=== PATIENT | male | born 1945 | race Caucasian/White ===

== ENCOUNTER → 2016-07-02 | Outpatient (CLI) | payer MEDICARE, BC ==
[~2016-07-02] MED LIST: ACYC200C PO; AMLO1CAP2 PO; FENT1PAT19 TD; FLUO20CA16 PO; FLUT1DIS3 IH; FURO-68 PO; HYDR-2762 PO; IMMU10VI IV; IOHEXOL 180 MG/ML 10 ML VIAL. ONE; METF500T PO; POTA10TA31 PO; SITA100T PO; TAMS0.4C97 PO; VENTOLIN HFA18 GM IH; methylPREDNISolone ACETATE 40 MG/ML VIAL. ONE; methylPREDNISolone ACETATE 80 MG/ML VIAL. ONE
--- NOTE | 2016-07-02 17:15 | PAIN ---
DATE OF SERVICE: 07/02/2016 PROGRESS NOTE FOR PAIN CLINIC DIAGNOSES: Lumbar radiculopathy with lumbar spinal stenosis with neurogenic claudication. HISTORY OF PRESENT ILLNESS: The patient is a 71-year-old male, who returns for followup status post lumbar epidural steroid injections x 3, last seen 03/25/2016. The patient did very well with this injection at that time. Reports the pain has been returning now after about 75% improvement in the low back and bilateral lower extremities. The patient reports, it has been increasing the activity with bending, stooping and twisting motions has been more noticeable with sitting in the car as well, usually better with sitting down or lying down, did not awaking up from sleep at night, has having difficulty sleeping, because of CPAP machine as ____ by his report, but otherwise doing fairly well. The patient reports his pain as a 6 on a scale of 10, today it is aching, constant pain increase in the back, bilateral lower extremities, mostly in the posterior gluteus, posterior thighs with weightbearing and walking most notably. The patient reports no new motor or sensory deficits, no new bowel or bladder incontinence or other complaints. The patient is doing well with hydrocodone and Duragesic patches reports some itching with the Duragesic. He does not use it very often, but when he does have some itching on both of his arms and chest were discussed decreasing the dose ____ decrease this accordingly. PHYSICAL EXAMINATION: VITAL SIGNS: Today, the patient's blood pressure is 118/63, pulse 71, respirations 18, temperature 98.8 degrees Fahrenheit, height is 5 feet 11 inches, weight is 280 pounds. GENERAL: The patient is awake, alert, oriented, appropriate, very pleasant demeanor. HEENT: Head shows normocephalic, atraumatic. Extraocular movements intact, symmetrical. Oral cavity, mucous membranes moist and pink. Dentition is intact. NECK: Shows anterior throat supple without palpable lymphadenopathy noted. Swallow reflex is symmetrical. CHEST: Shows normal on inspection. Breath sounds are clear to auscultation bilaterally. HEART: Shows S1 and S2 clear. No murmurs auscultated. ABDOMEN: Obese, soft, nontender, nondistended. No palpable organomegaly. No new rebound or guarding demonstrated. BACK: Shows spine grossly midline. Mild flattening of lumbar lordotic curvature is noted. Lumbar paraspinous muscle shows some diffuse tenderness throughout the middle and lower distribution of paraspinous muscles bilaterally, but without significant radiation. The patient does show good rotational motion of lumbar spine, both laterally as well as extension and flexion without difficulty. No tenderness over the sacrum or sacroiliac regions. EXTREMITIES: Lower extremities showed deep tendon reflexes 1+/4 in the patellar and tendo calcaneus tendons are symmetrical. Motor exam is strong with dorsiflexion, extension, quadriceps and hamstring flexion and equal at 5/5. Options were discussed with the patient and the patient's old chart was reviewed and his current medication regimen updated. Current review of systems updated today as well. We will proceed with the first in the series of the lumbar epidural steroid injection with fluoroscopic guidance. Risks were again discussed including, but not limited to bleeding, infection, possibility of epidural hematoma, subsequent neurologic compromise, dural puncture, headaches, spinal cord and/or nerve damage, side effects of steroid medication and poor results regarding pain control. The patient understands and wishes to proceed. The patient will return to clinic in approximately 4 weeks for followup. He was counseled on his return appointment, activity level and side effects to be aware of. The patient was given refill prescription for hydrocodone and fentanyl 75 mcg dose, decreased from 100 mcg. This is may decrease some of the peripheral itching that he has been having. The patient was given instruction as well as side effects to be aware with the medications and will follow up as scheduled. DIAGNOSES: Lumbar radiculopathy with spinal stenosis with neurogenic claudication. PROCEDURES: Lumbar epidural steroid injection in translaminar approach to the L5-S1 level using C-arm fluoroscopic guidance under sterile prep and drape using local anesthetic. Medications injected 120 mg Depo-Medrol plus 10 mL of preservative-free normal saline and 2 mL of Isovue for contrast. CONDITION AT DISCHARGE: Stable. The patient tolerated procedure well, had no complications. ZENON ASENCIO MD DR: SHANIQUA/douglas JOB#: [id number] / [id number]
== END | disposition home or self-care (01) ==
LOC: PNCL 10:20
PROVIDERS: ATTEND Anesthesiology
DX: M48.06 Spinal stenosis, lumbar region (principal); M54.16 Radiculopathy, lumbar region
CPT/HCPCS: 62323; J1030; J1040

== ENCOUNTER → 2016-09-30 | Outpatient (CLI) | payer MEDICARE, BC | END | disposition home or self-care (01) | LOC: PNCL 13:48 | PROVIDERS: ATTEND Anesthesiology | DX: M48.06 Spinal stenosis, lumbar region (principal) | CPT/HCPCS: 62323; J1030; J1040 ==

== ENCOUNTER → 2016-12-24 | Outpatient (CLI) | payer MEDICARE, BC ==
--- NOTE | 2016-12-24 13:27 | PAIN ---
DATE OF SERVICE: 12/24/2016 PROGRESS NOTE FOR PAIN CLINIC DIAGNOSES: Lumbar radiculopathy with lumbar spinal stenosis and neurogenic claudication. HISTORY OF PRESENT ILLNESS: The patient is a 71-year-old male who returns for followup status post lumbar epidural steroid injection x 2, last seen 09/30/2016. The patient reports he did fairly well with this, about a 50%-60% improvement. The patient reports doing fairly well. The pain began to return now, however, in the low back itself, mostly in the low back, posterior gluteus, posterior thighs with some radiation into the lower extremities occasionally, but not every time that is present. The patient reports it is worse with standing, walking, changing positions, it wakes him from sleep occasionally, but he sleeps about 5 hours at a time, he can reposition and get back to sleep without too much difficulty. The patient reports the pain as aching and dull, radiating to posterior gluteus, posterior thighs. He has had increased activity lately as well, which has exacerbated the pain as he has been working on his farm, do his normal capacity, but the activity has been more recently over the past few weeks and has exacerbated the pain. The patient reports it is a 7 on a scale of 10 at its worse, a 4 on average and a 3 at its least . The patient reports no new motor or sensory deficits, no new bowel or bladder incontinence or other complaints. PHYSICAL EXAMINATION: VITAL SIGNS: Today, the patient's blood pressure 152/79, pulse 75, respirations are 18, temperature 97.8 degrees Fahrenheit, height is 5 feet 11 inches, weighs 265 pounds. GENERAL: The patient is awake, alert, oriented, appropriate, very pleasant demeanor. HEENT: Head shows normocephalic, atraumatic. Extraocular movements are intact and symmetrical. Oral cavity shows mucous membranes moist and pink. Dentition is intact. NECK: Shows anterior throat supple without palpable lymphadenopathy noted. Swallow reflex is symmetrical. CHEST: Shows normal on inspection. Breath sounds are clear to auscultation bilaterally. HEART: Shows S1 and S2 clear. ABDOMEN: Soft, nontender, nondistended. No palpable organomegaly noted. No rebound or guarding demonstrated. BACK: Shows grossly midline spine with some moderate tenderness with palpation in the lumbar paraspinous musculature on the lower lumbar distribution, but only diffusely without radiation. The patient has full rotational motion, both laterally as well as extension and flexion without difficulty. EXTREMITIES: Lower extremities showed deep tendon reflexes at 1+ in the patellar and 1+ tendo calcaneus tendons and equal. Motor exam is strong with 5/5 dorsiflexion, extension and equal bilaterally. PLAN: Options were discussed with the patient and the patient's old chart was reviewed as is his current medication regimen and review of systems updated as well. We will proceed with a lumbar epidural steroid injection, a third in the series with fluoroscopic guidance. Risks were again discussed including, but not limited to bleeding, infection, possibility of epidural hematoma, subsequent neurologic compromise, dural puncture, headaches, spinal cord and/or nerve damage, side effects of steroid medication and poor results regarding pain control. The patient understands and wishes to proceed. The patient will return to clinic in approximately 2 weeks for followup. He was counseled as to return appointment, activity level and side effects to be aware of. DIAGNOSES: Lumbar radiculopathy with lumbar spinal stenosis and neurogenic claudication. PROCEDURE: Lumbar epidural steroid injection in translaminar approach at L5-S1 levels using C-arm fluoroscopic guidance under sterile prep and drape using local anesthetic. MEDICATIONS INJECTED: A 120 mg of Depo-Medrol plus 10 mL of preservative-free normal saline and 2 mL of Isovue for contrast. CONDITION AT DISCHARGE: Stable. The patient tolerated the procedure well and no complications. ZENON ASENCIO MD DR: SHANIQUA/douglas JOB#: [id number] / [id number]
== END | disposition home or self-care (01) ==
LOC: PNCL 10:22
PROVIDERS: ATTEND Anesthesiology
DX: M48.06 Spinal stenosis, lumbar region (principal); M54.16 Radiculopathy, lumbar region; Z88.6 Allergy status to analgesic agent
CPT/HCPCS: 62323; J1030; J1040

== ENCOUNTER → 2017-03-03 | Outpatient (CLI) | payer MEDICARE, BC ==
--- NOTE | 2017-03-04 00:59 | PAIN ---
DATE OF SERVICE: 03/03/2017 DIAGNOSES: Lumbar radiculopathy with lumbar spinal stenosis and neurogenic claudication. HISTORY OF PRESENT ILLNESS: The patient is a 71-year-old male who returns for a followup status post lumbar epidural steroid injection x 1 on 02/04. The patient reports he did very well with about 80% improvement in the low back, bilateral lower extremity. Now pain is returning in the low back region, in the right posterior gluteus, posterior thigh, posterior calf on the right side more than the left; is aching, radiating, dull, stabbing at times and can be tight as well. The patient reports it is intermittent; however, is not as bad as it was prior to injection, but is beginning to return over the past week or so and becoming more noticeable. The patient reports it is beginning to awaken him from sleep as it did not do this right after the injection but now over the past week or so, it is beginning to do this as well. He can usually reposition, take pain medication and get out of bed, change positions about every 3-4 hours, especially when he laid on his right side. The patient reports his pain is a 9 on a scale of 10 at its worst, 8 on average, a 4 at its least and is a 4 today. The patient reports no new motor or sensory deficits, no new bowel or bladder incontinence or other complaints. PHYSICAL EXAMINATION: VITAL SIGNS: Today, the patient's blood pressure is 144/77, pulse 65, respirations 18, temperature is 97.8 degrees Fahrenheit, height is 5 feet 11 inches, weight is 264 pounds. GENERAL: The patient is awake, alert, oriented, appropriate, has a very pleasant demeanor. HEENT: Shows normocephalic, atraumatic. Extraocular movements are intact, symmetrical. Oral cavity shows mucous membranes are moist and pink. Dentition is intact. NECK: Shows anterior throat supple without palpable lymphadenopathy noted. Swallow reflex is symmetrical. Neck shows full rotational motion of cervical spine both laterally as well as extension and flexion without difficulty or pain reported. CHEST: Shows normal with inspection. Breath sounds are clear to auscultation bilaterally. HEART: Shows S1, S2 clear. No murmurs auscultated. ABDOMEN: Obese, but is soft, nontender, nondistended. No palpable organomegaly is noted. MUSCULOSKELETAL: Back shows spine grossly in the midline. Lumbar paraspinous musculature shows symmetrical with inspection, on palpation shows some mild tenderness with palpation in the low lumbar distribution only, but without radiation. No trigger points or asymmetry. The patient has full rotational motion of the lumbar spine both laterally as well as extension and flexion without significant difficulty. Lower extremities show deep tendon reflexes at 1+/4 in the patellar and tendo-calcaneus tendons and are equal. Motor exam is strong with 5/5 dorsiflexion, extension, quadriceps and hamstring flexion and symmetrical as well. Peripheral pulses are 1+ posterior tibia. No peripheral edema is noted bilaterally. PLAN: Options were discussed with the patient. The patient's old chart was reviewed as his current medication regimen and his current review of systems updated as well as medication list updated. The patient would like to proceed with a lumbar epidural steroid injection today. It is the second in serious. We discussed the procedure as well as risks including but not limited to bleeding, infection, possibility of epidural hematoma and subsequent neurological compromise, dural puncture headaches, spinal cord and/or nerve damage, side effects of steroid medication and poor results regarding pain control. The patient understands and wished to proceed. The patient will return to the clinic in approximately 2 weeks for a followup, was counseled on return appointment, activity level and side effects to be aware of. DIAGNOSES: Lumbar radiculopathy with lumbar spinal stenosis and neurogenic claudication. PROCEDURE: Lumbar epidural steroid injection, translaminar approach, at the L5-S1 level using C-arm fluoroscopic guidance under sterile prep and drape using local anesthetic. MEDICATIONS INJECTED: A total of 120 mg of Depo-Medrol plus 10 mL of preservative-free normal saline and 2 mL of Isovue for contrast. CONDITION AT DISCHARGE: Stable. The patient tolerated procedure well, had no complications. ZENON ASENCIO MD DR: SHANIQUA/douglas JOB#: [id number] / [id number]
== END | disposition home or self-care (01) ==
LOC: PNCL 10:35
PROVIDERS: ATTEND Anesthesiology
DX: M48.062 Spinal stenosis, lumbar region with neurogenic claudication (principal); M54.16 Radiculopathy, lumbar region; Z88.5 Allergy status to narcotic agent
CPT/HCPCS: 62323; J1030; J1040

== ENCOUNTER → 2017-03-25 | Outpatient (CLI) | payer MEDICARE, BC ==
--- NOTE | 2017-03-25 19:44 | PAIN ---
DATE OF SERVICE: 03/25/2017 DIAGNOSES: Lumbar radiculopathy with lumbar spinal stenosis and neurogenic claudication. HISTORY OF PRESENT ILLNESS: The patient is a 72-year-old male who returns for followup status post lumbar epidural steroid injections x 2, last seen 03/03/2017. The patient did very well, about 80% improvement. 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 It is now becoming more constant, is radiating pain, is aching, alternating with dull and sharp pains occasionally, worse with walking, standing, change in positions, but better with sitting or lying down. The patient reports it awakens him occasionally from sleep, but not every night, usually when he lays on his right side. The patient reports pain is 7 on a scale of 10 at its worse, 5 on average, and a 3 at its least, is a 3 today. The patient reports no new motor or sensory deficits, no new bowel or bladder incontinence or other complaints. PHYSICAL EXAMINATION: VITAL SIGNS: Today, the patient's blood pressure 148/72, pulse 70, respirations are 20, temperature is 97.5 degrees Fahrenheit, height 5 feet 11 inches, weight is 260 pounds. GENERAL: The patient is awake, alert, oriented, appropriate, very pleasant demeanor. HEENT: Head shows normocephalic, atraumatic. Extraocular muscles are intact and symmetrical. Oral cavity: Mucous membranes moist and pink. Dentition is intact. NECK: Shows anterior throat supple without palpable lymphadenopathy noted. Swallow reflex is symmetrical. CHEST: Shows normal with inspection. Breath sounds clear to auscultation bilaterally. HEART: Shows S1, S2 clear. No murmurs auscultated. ABDOMEN: Obese, soft, nontender, nondistended. No palpable organomegaly is noted. No rebound or guarding demonstrated. BACK: Shows spine grossly in midline. Well-healed surgical scarring is noted in the lumbar distribution from superficial surgeries. Lumbar paraspinous muscle shows symmetrical on inspection. The patient shows no tenderness on the sacrum or sacroiliac regions with palpation. Good rotational motion both laterally greater than 10 degrees right and left as well as extension greater than 10 degrees without pain reported, also forward flexion at 45 degrees without pain. EXTREMITIES: Lower extremities show deep tendon reflexes 1+ in the patellar and tendo calcaneus tendons. Motor exam is strong with 5/5 dorsiflexion, extension, quads and hamstring flexion and equal. Peripheral pulses are 1+ posterior tibial. No peripheral edema is noted bilaterally. Options were discussed with the patient. The patient's old chart was reviewed as his current medication regimen and updated. Current review of systems is updated today as well. We will proceed with a third in the series of lumbar epidural steroid injection with fluoroscopic guidance. Risks were again discussed including, but not limited to bleeding, infection, possibility of epidural hematoma, subsequent neurologic compromise, dural puncture, headaches, spinal cord and/or nerve damage, side effects of steroid medication and poor results regarding pain control. The patient understands and wished to proceed. The patient will return to clinic in approximately 2 weeks for followup. He was counseled to return appointment, activity level and side effects to be aware of. DIAGNOSIS: Lumbar radiculopathy with lumbar spinal stenosis and neurogenic claudication. PROCEDURE: Lumbar epidural steroid injection, translaminar approach L5-S1 level using C-arm fluoroscopic guidance under sterile prep and drape using local anesthetic. MEDICATION INJECTED: A total of 120 mg Depo-Medrol plus 10 mL preservative-free normal saline and 2 mL of Isovue for contrast. CONDITION AT DISCHARGE: Stable. The patient tolerated procedure well, had no complications. ZENON ASENCIO MD DR: SHANIQUA/douglas JOB#: [id number] / [id number]
== END | disposition home or self-care (01) ==
LOC: PNCL 10:32
PROVIDERS: ATTEND Anesthesiology
DX: M48.062 Spinal stenosis, lumbar region with neurogenic claudication (principal); M54.16 Radiculopathy, lumbar region; Z88.6 Allergy status to analgesic agent
CPT/HCPCS: 62323; J1030; J1040

== ENCOUNTER → 2017-08-23 | Outpatient (CLI) | payer MEDICARE, BC ==
[~2017-08-23] MED LIST changes: -ACYC200C PO; -AMLO1CAP2 PO; -FENT1PAT19 TD; -FLUO20CA16 PO; -FLUT1DIS3 IH; -FURO-68 PO; -HYDR-2762 PO; -IMMU10VI IV; +IOHEXOL 180 MG/ML 10 ML VIAL.; -IOHEXOL 180 MG/ML 10 ML VIAL. ONE; +LIDOCAINE 1% PF 2 ML VIAL.; -METF500T PO; -POTA10TA31 PO; -SITA100T PO; -TAMS0.4C97 PO; -VENTOLIN HFA18 GM IH; +methylPREDNISolone ACETATE 40 MG/ML VIAL.; -methylPREDNISolone ACETATE 40 MG/ML VIAL. ONE; +methylPREDNISolone ACETATE 80 MG/ML VIAL.; -methylPREDNISolone ACETATE 80 MG/ML VIAL. ONE
== END | disposition home or self-care (01) ==
LOC: PNCL 10:17
DX: M48.062 Spinal stenosis, lumbar region with neurogenic claudication (principal); M54.16 Radiculopathy, lumbar region; Z88.5 Allergy status to narcotic agent
CPT/HCPCS: 62323; J1030; J1040; Q9965

== ENCOUNTER → 2018-01-21 | Outpatient (CLI) | payer MEDICARE, BC ==
[~2018-01-21] MED LIST changes: +ACYC200C PO; +AMLO1CAP2 PO; +FENT1PAT19 TD; +FLUO20CA16 PO; +FLUT1DIS3 IH; +FURO-68 PO; +HYDR-2762 PO; +IMMU10VI IV; -IOHEXOL 180 MG/ML 10 ML VIAL.; +IOHEXOL 180 MG/ML 10 ML VIAL. ONE; -LIDOCAINE 1% PF 2 ML VIAL.; +LIDOCAINE 1% PF 2 ML VIAL. ONE; +METF500T PO; +POTA10TA31 PO; +SITA100T PO; +TAMS0.4C97 PO; +VENTOLIN HFA18 GM IH; -methylPREDNISolone ACETATE 40 MG/ML VIAL.; +methylPREDNISolone ACETATE 40 MG/ML VIAL. ONE; -methylPREDNISolone ACETATE 80 MG/ML VIAL.; +methylPREDNISolone ACETATE 80 MG/ML VIAL. ONE
--- NOTE | 2018-01-22 01:15 | PAIN ---
DATE OF SERVICE: 01/21/2018 PROGRESS NOTE FOR PAIN CLINIC DIAGNOSIS: Lumbar radiculopathy with lumbar spinal stenosis with neurogenic claudication. HISTORY OF PRESENT ILLNESS: The patient is a 72-year-old male who returns for followup status post lumbar epidural steroid injection x 2, last seen on 12/14/2017. The patient did very well with this with about 50% improvement overall, initially with about 70%-80% improvement, but the pain is returning now in the low back and in the right greater than left lower extremity. 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 The patient reports the pain is 8 on a scale of 10 at its worst, 6 on average, 4 at its least and is a 6 today. The patient reports it is an aching, dull, radiating to the right leg, posterior gluteus and posterior thighs noted. The patient reports no new motor or sensory deficits and no new bowel or bladder incontinence but it does awaken him from sleep occasionally over the last week or so, which usually does not. PHYSICAL EXAMINATION: VITAL SIGNS: The patient's blood pressure 134/79, pulse 70, respirations 18 and temperature 97.5 degrees Fahrenheit. Weight is 267 pounds. GENERAL: The patient is awake, alert, oriented, appropriate and very pleasant demeanor. HEENT: Head shows normocephalic and atraumatic. Extraocular movements are intact and symmetrical. Oral cavity: Mucous membranes are moist and pink. Dentition is intact. NECK: Shows anterior throat supple without palpable lymphadenopathy noted. Swallow reflex symmetrical. CHEST: Shows normal on inspection. Breath sounds clear to auscultation bilaterally. HEART: Shows S1 and S2 clear. No murmurs auscultated. ABDOMEN: Obese, soft, nontender and nondistended. No palpable organomegaly is noted. No rebound or guarding demonstrated. BACK: Shows spine grossly in the midline. Normal appearing thoracic kyphosis and lumbar lordotic curvature. Lumbar paraspinous muscle shows symmetrical on inspection, on palpation shows some mild tenderness but only diffusely in the low lumbar distribution bilaterally without radiation. Good rotational motion of the lumbar spine, both laterally as well as extension and flexion is maintained without difficulty or pain reported. No tenderness over the sacrum or sacroiliac regions. EXTREMITIES: Lower extremities show deep tendon reflexes 1+ in the patellar and tendo-calcaneus tendons. Motor exam is strong with 5/5 dorsiflexion, extension, quadriceps and hamstring flexion. Peripheral pulses are 1+ posterior tibial. No peripheral edema is noted. Options were discussed with the patient. The patient's old chart was reviewed as well as his current medication regimen updated. Current review of systems updated today as well and we will proceed with a third in the series of lumbar epidural steroid injection today with fluoroscopic guidance. Risks were again discussed including, but not limited to bleeding, infection, possibility of epidural hematoma, subsequent neurological compromise, dural puncture, headaches, spinal cord and/or nerve damage, side effects of steroid medication and poor results regarding pain control. The patient understands and wished to proceed. The patient will return to the clinic in approximately 2 weeks for followup, was counseled as to return appointment, activity level and side effects to be aware of. DIAGNOSES: Lumbar radiculopathy with lumbar spinal stenosis with neurogenic claudication. PROCEDURE: Lumbar epidural steroid injection, translaminar approach at L5-S1 level using C-arm fluoroscopic guidance under sterile prep and drape using local anesthetic. MEDICATION INJECTED: A total of 120 mg Depo-Medrol plus 10 mL of preservative-free normal saline and 2 mL of Isovue for contrast. CONDITION AT DISCHARGE: Stable. The patient tolerated the procedure well and had no complications. ZENON ASENCIO MD DR: SHANIQUA/douglas JOB#: [id number] / [id number]
== END | disposition home or self-care (01) ==
LOC: PNCL 11:08
PROVIDERS: ATTEND Anesthesiology
DX: M54.16 Radiculopathy, lumbar region (principal); M48.062 Spinal stenosis, lumbar region with neurogenic claudication; Z98.890 Other specified postprocedural states
CPT/HCPCS: 62323; J1030; J1040; Q9965

== ENCOUNTER → 2018-08-02 | Outpatient (CLI) | payer MEDICARE, BC ==
[~2018-08-02] MED LIST changes: -HYDR-2762 PO; +HYDR-2765 PO; -LIDOCAINE 1% PF 2 ML VIAL. ONE
--- NOTE | 2018-08-03 01:35 | PAIN ---
DATE OF SERVICE: 08/02/2018 DIAGNOSES: Lumbar radiculopathy with lumbar spinal stenosis with neurogenic claudication. HISTORY OF PRESENT ILLNESS: The patient is a 73-year-old male who returns for followup status post lumbar epidural steroid injection x 1 on 03/14/2018. The patient did very well with about 70% improvement for about 2 months following the injection. The patient reports the pain is returning now. He has been distracted though he had some skin cancer taken of the right side of his nondenominational and has been dealing with that over the past few months and returns today with significant pain in the low back, bilateral lower extremities, right equal to left, essentially into the posterior gluteus, posterior thighs, posterior calves and across the low back primarily. The patient reports it is a 6 on a scale of 10 at its worst, 4 on average, 2 at its least and is a 4 today. The patient reports it is aching and dull, shooting, stinging, sometimes burning and becoming constant with spending time on his feet, bending or flexing at the waist repetitively and standing for long periods of greater than 40-50 minutes. The patient reports it is awakening him from sleep occasionally, but only about once or twice at night if at all. The patient reports no new motor or sensory deficits, no new bowel or bladder incontinence or other complaints. PHYSICAL EXAMINATION: VITAL SIGNS: The patient's blood pressure 109/68, pulse 75, respirations 18, temperature is 98.5 degrees Fahrenheit, and weight is 265 pounds. GENERAL: The patient is awake, alert, oriented, appropriate, very pleasant demeanor. HEENT: Shows normocephalic, atraumatic. Extraocular movements are intact and symmetrical. Oral cavity: Mucous membranes moist and pink. Dentition is intact. NECK: Shows anterior throat supple without palpable lymphadenopathy noted. Swallow reflex is symmetrical. CHEST: Shows normal on inspection. Breath sounds are clear to auscultation bilaterally. HEART: Shows S1, S2 clear. No murmurs auscultated. ABDOMEN: Soft, nontender, nondistended. No palpable organomegaly is noted. No rebound or guarding demonstrated. BACK: Shows spine grossly in the midline. Slight exaggeration of thoracic kyphosis, some minor flattening of lumbar lordotic curvature. Lumbar paraspinous muscle shows symmetrical on inspection. On palpation shows some moderate tenderness diffusely bilaterally, but only diffusely without radiation. The patient has good rotational motion of lumbar spine, both laterally greater than 10 degrees right and left as well as extension greater than 10 degrees, forward flexion 45 degrees without pain reported. EXTREMITIES: The patient's lower extremities show deep tendon reflexes 1+ in the patellar and tendo calcaneus tendons are equal. Motor exam is strong with 5/5 dorsiflexion, extension and equal. Peripheral pulses are 1+ posterior tibia. No peripheral edema is noted bilaterally. Options were discussed with the patient. The patient's old chart was reviewed as his current medication regimen updated. Current review of systems is updated today as well. We will proceed with a second in the series of lumbar epidural steroid injection today with fluoroscopic guidance. Risks were again discussed including, but not limited to bleeding, infection, possibility of epidural hematoma, subsequent neurologic compromise, dural puncture, headaches, spinal cord and/or nerve damage, side effects of steroid medication and poor results regarding pain control. The patient understands and wished to proceed. The patient will return to the clinic in approximately 2 weeks for followup, was counseled on return appointment, activity level and side effects to be aware of. The patient also given refill prescription for hydrocodone with instructions and side effects to be aware of with a 90-day supply. He has had appropriate [facility] reporting as well as appropriate urinalysis to date. DIAGNOSES: Lumbar radiculopathy with lumbar spinal stenosis with neurogenic claudication. PROCEDURE: Lumbar epidural steroid injection, translaminar approach at L5-S1 level using C-arm fluoroscopic guidance under sterile prep and drape using local anesthetic. MEDICATION INJECTED: A total of 120 mg Depo-Medrol plus 10 mL of preservative-free normal saline and 2 mL of Isovue for contrast. CONDITION AT DISCHARGE: Stable. The patient tolerated the procedure well, had no complications. ZENON ASENCIO MD DR: SHANIQUA/douglas JOB#: [id number] / [id number]
== END | disposition home or self-care (01) ==
LOC: PNCL 10:00
PROVIDERS: ATTEND Anesthesiology
DX: M48.062 Spinal stenosis, lumbar region with neurogenic claudication (principal); M54.16 Radiculopathy, lumbar region; Z88.5 Allergy status to narcotic agent; Z91.040 Latex allergy status
CPT/HCPCS: 62323; J1030; J1040; Q9965

== ENCOUNTER → 2018-09-22 | Outpatient (CLI) | payer MEDICARE, BC ==
--- NOTE | 2018-09-22 12:20 | PAIN ---
DATE OF SERVICE: 09/22/2018 PROGRESS NOTE FOR PAIN CLINIC DIAGNOSIS: Lumbar radiculopathy with lumbar spinal stenosis with neurogenic claudication. HISTORY OF PRESENT ILLNESS: The patient is a 73-year-old male who returns for followup status post lumbar epidural steroid injection x 2, most recently seen on 08/02/2018. The patient did very well, about 70% improvement for the first 2 months after the injection. 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 He has increasing pain in his low back and bilateral lower extremities. The patient reports pain is radiating into the posterior gluteus, posterior thighs and calves, mostly in the low back is his main complaint. The patient reports it is burning and aching, sharp and dull, alternating and stabbing at times; worse with walking, standing, changing in positions. He reports the pain is 6 on a scale 10 at its worst over the past week, 4 on average, 3 at its least and is 3 today. The patient reports otherwise he was doing well before that with distance walking, doing activities at work and at home, travelling with greater ease and comfort. Now the pain is returning, it is waking him from sleep about once or twice a night, but not every night. The patient reports no new motor or sensory deficits, no new bowel or bladder incontinence or other complaints. PHYSICAL EXAMINATION: VITAL SIGNS: The patient's blood pressure is 143/84, pulse 67, respirations are 16, temperature 97.7 degrees Fahrenheit. Height is 5 feet 11 inches, weight 274 pounds. GENERAL: The patient is awake, alert, oriented, appropriate, very pleasant demeanor. HEENT: Shows normocephalic, atraumatic. Extraocular movements are intact and symmetrical. Oral cavity: Mucous membranes moist and pink. Dentition is intact. NECK: Shows anterior throat supple without palpable lymphadenopathy noted. Swallow reflex is symmetrical. CHEST: Shows normal on inspection. Breath sounds are clear to auscultation bilaterally. HEART: Shows S1, S2 clear. No murmurs auscultated. ABDOMEN: Soft, nontender, nondistended. No palpable organomegaly is noted. No rebound or guarding demonstrated. BACK: Shows spine grossly in the midline. Normal-appearing thoracic kyphosis and mild flattening of lumbar lordotic curvature. Lumbar paraspinous muscle shows symmetrical on inspection; with palpation shows some moderate tenderness diffusely, only in the low lumbar distribution bilaterally without radiation. The patient has good rotational motion of lumbar spine, both laterally as well as extension and flexion without significant pain. EXTREMITIES: The patient's lower extremities show deep tendon reflexes 1+ and the patellar and tendo calcaneus tendons are equal. Motor exam is approximately 5 on a scale of 5 with dorsiflexion, extension, quadriceps and hamstring; flexion symmetrical. Peripheral pulses are 1+ posterior tibia. No peripheral edema is noted bilaterally. Options were discussed with the patient. The patient's old chart was reviewed as was his current medication regimen updated. Current review of systems updated today as well. We will proceed with a third in the series of lumbar epidural steroid injection today with fluoroscopic guidance. Risks were again discussed including, but not limited to bleeding, infection, possibility of epidural hematoma and subsequent neurological compromise, dural puncture, headaches, spinal cord and/or nerve damage, side effects of steroid medication and poor results regarding pain control. The patient understands and wished to proceed. The patient will return to clinic in approximately 2 weeks for followup. He was counseled as to return appointment, activity level and side effects to be aware of. DIAGNOSIS: Lumbar radiculopathy with lumbar spinal stenosis with neurogenic claudication. PROCEDURES: Lumbar epidural steroid injection, translaminar approach at L5-S1 level using C-arm fluoroscopic guidance under sterile prep and drape using local anesthetic. MEDICATION INJECTED: A total of 120 mg Depo-Medrol plus 10 mL of preservative-free normal saline and 2 mL of contrast. CONDITION AT DISCHARGE: Stable. The patient tolerated the procedure well, had no complications. ZENON ASENCIO MD DR: SHANIQUA/douglas JOB#: [id number] / [id number]
== END ==
LOC: PNCL 10:32
PROVIDERS: ATTEND Anesthesiology
DX: M54.16 Radiculopathy, lumbar region (principal); M48.062 Spinal stenosis, lumbar region with neurogenic claudication
CPT/HCPCS: 62323; J1030; J1040; Q9965

== ENCOUNTER → 2018-10-11 | Outpatient (CLI) | payer MEDICARE, BC ==
--- NOTE | 2018-10-11 10:43 | PAIN ---
DATE OF SERVICE: 10/11/2018 DIAGNOSIS: Lumbar radiculopathy with lumbar spinal stenosis with neurogenic claudication. HISTORY OF PRESENT ILLNESS: The patient is a 73-year-old male who returns for followup status post lumbar epidural steroid injections, most recently on 09/22/2018. The patient did very well with about 70% improvement overall. The patient reports that the pain is returning now in the low back and into the bilateral lower extremity, slightly more on the right than the left, but present bilaterally, the patient reports increased with activity. Initially, he was doing much better with decreased daily activities, working activities, traveling. The pain is returning fairly quickly. The patient reports it is aching and dull, can be severe at times, radiating into the posterior gluteus, posterior thighs bilaterally, again worse on the right side. The patient reports it is 7 on a scale of 10 at its worst in the past week, 6 on average, 4 at its least and is a 5 today. The patient reports no new motor or sensory deficits, no new bowel or bladder incontinence or other complaints. PHYSICAL EXAMINATION: VITAL SIGNS: The patient's blood pressure 142/82, pulse 69, respirations 18, temperature 97.8 degrees Fahrenheit, height is 5 feet 11 inches, weight is 271 pounds. GENERAL: The patient is awake, alert, oriented, appropriate, very pleasant in demeanor. HEENT: Head shows normocephalic, atraumatic. Extraocular muscles are intact and symmetrical. Oral cavity, mucous membranes are moist and pink. Dentition is intact. NECK: Shows anterior throat supple without palpable lymphadenopathy noted. Swallow reflex is symmetrical. CHEST: Shows normal on inspection. Breath sounds clear to auscultation bilaterally. HEART: Shows S1, S2 clear. No murmurs auscultated. ABDOMEN: Soft, nontender, nondistended. No palpable organomegaly is noted. No rebound or guarding demonstrated. BACK: Shows spine grossly in the midline. Normal-appearing thoracic kyphosis and minor flattening of lumbar lordotic curvature. Lumbar paraspinous muscle shows symmetrical on inspection and palpation shows some moderate tenderness diffusely bilaterally, but only diffusely without significant radiation. EXTREMITIES: The patient's lower extremities show deep tendon reflexes at 1+in the patellar and tendo-calcaneus tendons and equal. Motor exam is 5/5 with dorsiflexion, extension, quadriceps and hamstring flexion symmetrical. Peripheral pulses are 1+. No peripheral edema is noted bilaterally. Options were discussed with the patient. The patient's old chart was reviewed as his current medication regimen updated. Current review of systems updated today as well. We will proceed with a lumbar epidural steroid injection today to effect as the first in this series with fluoroscopic guidance. Risks were again discussed including, but not limited to bleeding, infection, possibility of epidural hematoma, subsequent neurological compromise, dural puncture, headaches, spinal cord and/or nerve damage, side effects of steroid medication and poor results regarding pain control. The patient understands and wished to proceed. The patient will return to the clinic in approximately 2 weeks for followup, was counseled on return appointment, activity level and side effects to be aware of. DIAGNOSIS: Lumbar radiculopathy with lumbar spinal stenosis with neurogenic claudication. PROCEDURE: Lumbar epidural steroid injection, translaminar approach L5-S1 level using C-arm fluoroscopic guidance under sterile prep and drape using local anesthetic. MEDICATION INJECTED: A total of 120 mg Depo-Medrol plus 10 mL of preservative-free normal saline, 2 mL for contrast. CONDITION AT DISCHARGE: Stable. The patient tolerated procedure well, had no complications. ZENON ASENCIO MD DR: SHANIQUA/douglas JOB#: [id number] / [id number]
== END ==
LOC: PNCL 08:56
PROVIDERS: ATTEND Anesthesiology
DX: M48.062 Spinal stenosis, lumbar region with neurogenic claudication (principal); M54.16 Radiculopathy, lumbar region
CPT/HCPCS: 62323; J1030; J1040; Q9965

== ENCOUNTER → 2019-01-06 | Outpatient (CLI) | payer MEDICARE, BC ==
--- NOTE | 2019-01-06 13:12 | PAIN ---
DATE OF SERVICE: 01/06/2019 PROGRESS NOTE FOR PAIN CLINIC DIAGNOSES: Lumbar radiculopathy with lumbar spinal stenosis with neurogenic claudication. HISTORY OF PRESENT ILLNESS: The patient is a 73-year-old male who returns for followup status post lumbar epidural steroid injection x 1, this series that was in 10/11/2018. The patient reports he did quite well with that with approximately 75% improvement initially and about 50% improvement after about a month. The patient reports the pain is returning now for about 4-5 weeks in the low back and into the bilateral lower extremities, mostly in the posterior gluteus, posterior thigh, posterior calf on the right side, but mostly across the low back. The patient reports it is 7 on a scale of 10 at its worst over the past week, 6 on average, 4 at its least and is at 4 today. The patient reports no new motor or sensory deficits, no new bowel or bladder incontinence or other complaints. The patient reports it awakens him from sleep about every 4-5 hours and has for the past few weeks. Before that, he was doing much better with increase in distance walking, doing work activities, household activities, traveling with greater ease and comfort. The patient reports no new motor or sensory deficits. Describes the pain as aching and dull, sharp at sometimes, and shooting in the right leg greater than the left. PHYSICAL EXAMINATION: VITAL SIGNS: The patient's blood pressure 138/78, pulse 69, respirations are 16, temperature 97.9 degrees Fahrenheit, height is 5 feet 11 inches, weight is 274 pounds. GENERAL: The patient is awake, alert, oriented, appropriate, very pleasant demeanor. HEENT: Shows normocephalic, atraumatic. Extraocular movements are intact and symmetrical. Oral cavity, mucous membranes are moist and pink. Dentition is intact. NECK: Shows anterior throat supple without palpable lymphadenopathy noted. Swallow reflex is symmetrical. CHEST: Shows normal on inspection. Breath sounds are clear to auscultation bilaterally. HEART: Shows S1, S2 clear. No murmurs auscultated. ABDOMEN: Soft, nontender, nondistended. BACK: Shows spine grossly in the midline. Slight exaggeration of thoracic kyphosis and minor flattening of lumbar lordotic curvature. Lumbar paraspinous muscle shows symmetrical on inspection, with palpation shows some moderate tenderness bilaterally. The patient has well-healed surgical scars noted from skin lesions in the past as well. With palpation shows some moderate tenderness diffusely bilaterally in the low lumbar distribution, but only diffusely. The patient has full rotational motion of the lumbar spine both laterally as well as extension and flexion without difficulty. EXTREMITIES: Lower extremities show deep tendon reflexes at 1+ in the patellar and tendo calcaneus tendons. Motor exam is strong with 5/5 dorsiflexion, extension, quadriceps and hamstring flexion symmetrical. Peripheral pulses are 1+ posterior tibia. No peripheral edema is noted. Options were discussed with the patient. The patient's old chart was reviewed as his current medication regimen updated. Current review of systems updated today as well. We will proceed with a lumbar epidural steroid injection, second in a series today with fluoroscopic guidance. Risks were again discussed including, but not limited to bleeding, infection, possibility of epidural hematoma, subsequent neurological compromise, dural puncture, headaches, spinal cord and/or nerve damage, side effects of steroid medication and poor results regarding pain control. The patient understands and wished to proceed. The patient will return to clinic in approximately 2 weeks for followup. He was counseled on return appointment, activity level and side effects to be aware of. DIAGNOSIS: Lumbar radiculopathy with lumbar spinal stenosis with neurogenic claudication. PROCEDURE: Lumbar epidural steroid injection, translaminar approach L5-S1 level using C-arm fluoroscopic guidance under sterile prep and drape using local anesthetic. MEDICATION INJECTED: Total of 120 mg Depo-Medrol plus 10 mL of preservative-free normal saline and 2 mL of contrast. CONDITION AT DISCHARGE: Stable. The patient tolerated the procedure well, had no complications. ZENON ASENCIO MD DR: SHANIQUA/douglas JOB#: [id number] / [id number]
== END | disposition home or self-care (01) ==
LOC: PNCL 10:57
PROVIDERS: ATTEND Anesthesiology
DX: M54.16 Radiculopathy, lumbar region (principal); M48.062 Spinal stenosis, lumbar region with neurogenic claudication; Z98.890 Other specified postprocedural states; Z91.040 Latex allergy status; Z88.8 Allergy status to other drugs, medicaments and biological substances
CPT/HCPCS: 62323; J1030; J1040; Q9965

== ENCOUNTER → 2019-02-15 | Outpatient (CLI) | payer MEDICARE, BC ==
--- NOTE | 2019-02-15 23:03 | PAIN ---
DATE OF SERVICE: 02/15/2019 PROGRESS NOTE FOR PAIN CLINIC DIAGNOSES: Lumbar radiculopathy with lumbar spinal stenosis with neurogenic claudication. HISTORY OF PRESENT ILLNESS: The patient is a 73-year-old male who returns for followup status post lumbar epidural steroid injection x 2, most recently seen on 01/06/2019. The patient did very well with the injection, about 50% improvement overall. The patient reports recent colder weather. 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 He has had increased pain in the low back, bilateral lower extremities, radiating in the posterior gluteus, posterior thighs bilaterally, essentially right equal to left. The patient reports initially he was doing work activities with greater ease and comfort, doing household activities as well as traveling with greater ease. Now, the pain is beginning to increase. The patient reports it is aching and dull in the back, radiating to the lower extremities. He rates as an 8 on a scale of 10, it was worst over the past week, 7 on average, 5 at its least and is a 7 today. The patient reports no new motor or sensory deficits, no new bowel or bladder incontinence. PHYSICAL EXAMINATION: VITAL SIGNS: The patient's blood pressure 143/87, pulse 72, respirations 16, temperature is 98.0 degrees Fahrenheit, weight is 278 pounds. GENERAL: The patient is awake, alert, oriented, appropriate, very pleasant demeanor. HEENT: Shows normocephalic, atraumatic. Extraocular movements are intact and symmetrical. Oral cavity shows mucous membranes moist and pink. Dentition is intact. NECK: Shows anterior throat supple without palpable lymphadenopathy noted. Swallow reflex symmetrical. CHEST: Shows normal on inspection. Breath sounds are clear bilaterally. HEART: Shows S1, S2 clear. No murmurs auscultated. ABDOMEN: Soft, nontender, nondistended. No palpable organomegaly is noted. No rebound or guarding demonstrated. BACK: Shows spine grossly in the midline. Normal-appearing thoracic kyphosis and some minor flattening of lumbar lordotic curvature. Lumbar paraspinous muscle shows symmetrical on inspection, on palpation shows some moderate tenderness diffusely bilaterally going diffusely without radiation. EXTREMITIES: The patient's lower extremities show deep tendon reflexes at 1+ in the patellar and tendo-calcaneus tendons are equal. Motor exam is strong with 5/5 dorsiflexion, extension, quadriceps and hamstring flexion symmetrical. Peripheral pulses are 1+ posterior tibia. No peripheral edema is noted in the bilateral lower extremities. Options were discussed with the patient. The patient's old chart was reviewed as his current medication regimen updated. Current review of systems updated today as well and we will proceed with a lumbar epidural steroid injection today with fluoroscopic guidance. Risks were again discussed including, but not limited to bleeding, infection, possibility of epidural hematoma, subsequent neurological compromise, dural puncture, headaches, spinal cord and/or nerve damage, side effects of steroid medication and poor results regarding pain control. The patient understands and wished to proceed. The patient will return to clinic in approximately 2 weeks for followup. She was counseled on return appointment, activity level and side effects to be aware of. DIAGNOSES: Lumbar radiculopathy with lumbar spinal stenosis with neurogenic claudication. PROCEDURE: Lumbar epidural steroid injection, translaminar approach at the L5-S1 level using C-arm fluoroscopic guidance under sterile prep and drape using local anesthetic. MEDICATION INJECTED: A total of 120 mg Depo-Medrol plus 10 mL of preservative-free normal saline and 2 mL of contrast. CONDITION AT DISCHARGE: Stable. The patient tolerated the procedure well, had no complications. ZENON ASENCIO MD DR: SHANIQUA/douglas JOB#: [id number] / [id number]
== END ==
LOC: PNCL 13:13
PROVIDERS: ATTEND Anesthesiology
DX: M54.16 Radiculopathy, lumbar region (principal); M48.062 Spinal stenosis, lumbar region with neurogenic claudication
CPT/HCPCS: 62323; J1030; J1040; Q9965

== ENCOUNTER → 2019-04-19 | Outpatient (CLI) | payer MEDICARE, BC ==
--- NOTE | 2019-04-20 04:53 | PAIN ---
DATE OF SERVICE: 04/19/2019 PROGRESS NOTE FOR PAIN CLINIC DIAGNOSIS: Lumbar radiculopathy with lumbar spinal stenosis with neurogenic claudication. HISTORY OF PRESENT ILLNESS: The patient is a 74-year-old male who returns for followup status post lumbar epidural steroid injections and medication management with hydrocodone. On 02/15/2019, the patient did very well with about 65% improvement after the injection. The pain in the low back and bilateral lower extremities is now returning in the posterior gluteus, posterior thighs, posterior calves, mostly in the back and the thighs and calves as well. The patient reports it is a 7 on a scale of 10 at its worst, 6 on average and a 4 at its least over the past week and is a 4 today. The patient reports no new motor or sensory deficits, no new bowel or bladder incontinence. The patient was taking hydrocodone, which does decrease the pain fairly significantly today as well. The patient reports it is aching and dull, radiating in the lower extremities, worse with walking, standing, change in positions, initially was doing much better with distance walking, doing work activities, household activities. 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 The patient reports no new motor or sensory deficits, no new bowel or bladder incontinence or other complaints. PHYSICAL EXAMINATION: VITAL SIGNS: The patient's blood pressure is 126/67, pulse 67, respirations 18, temperature 97.8 degrees Fahrenheit, height is 5 feet 11 inches, weight is 276 pounds. GENERAL: The patient is awake, alert, oriented, appropriate, very pleasant demeanor. HEENT: Shows normocephalic, atraumatic. Extraocular movements are intact and symmetrical. Oral cavity: Mucous membranes moist and pink. Dentition is intact. NECK: Shows anterior throat supple without palpable lymphadenopathy noted. Swallow reflex symmetrical. CHEST: Shows normal on inspection. Breath sounds are clear to auscultation bilaterally. HEART: Shows S1, S2 clear. No murmurs auscultated. ABDOMEN: Soft, obese, nontender, nondistended. BACK: Shows spine grossly in the midline. Normal appearing thoracic kyphosis and lumbar lordotic curvature slightly flattened. Lumbar paraspinous muscle shows symmetrical on inspection, with palpation shows some moderate tenderness diffusely bilaterally going diffusely without significant radiation. EXTREMITIES: The patient's lower extremities show deep tendon reflexes at 1+ patellar and tendo-calcaneus tendons. Motor exam is strong with 5/5 dorsiflexion, extension, quadriceps and hamstring flexion. Peripheral pulses are 1+ posterior tibia. No peripheral edema is noted bilaterally. Options were discussed with the patient. The patient's old chart was reviewed as his current medication regimen updated. Current review of systems updated today as well. We will proceed with a lumbar epidural steroid injection today, the first in this series with fluoroscopic guidance. Risks were again discussed including, but not limited to bleeding, infection, possibility of epidural hematoma, subsequent neurological compromise, dural puncture, headaches, spinal cord and/or nerve damage, side effects of steroid medication and poor results regarding pain control. The patient understands and wished to proceed. The patient will return to clinic in approximately 2 weeks for followup. She was counseled on return appointment, activity level and side effects to be aware of. DIAGNOSIS: Lumbar radiculopathy with lumbar spinal stenosis with neurogenic claudication. PROCEDURE: Lumbar epidural steroid injection, translaminar approach at L5-S1 level using C-arm fluoroscopic guidance under sterile prep and drape using local anesthetic. MEDICATION INJECTED: A total of 120 mg Depo-Medrol plus 10 mL of preservative-free normal saline and 2 mL of contrast. CONDITION AT DISCHARGE: Stable. The patient tolerated procedure well, had no complications. ZENON ASENCIO MD DR: SHANIQUA/douglas JOB#: [id number] / [id number]
== END ==
LOC: PNCL 11:28
PROVIDERS: ATTEND Anesthesiology
DX: M54.16 Radiculopathy, lumbar region (principal); M48.062 Spinal stenosis, lumbar region with neurogenic claudication
CPT/HCPCS: 62323; J1030; J1040; Q9965

== ENCOUNTER → 2019-05-30 | Outpatient (CLI) | payer MEDICARE, BC ==
--- NOTE | 2019-05-30 11:31 | PAIN ---
DATE OF SERVICE: 05/30/2019 PROGRESS NOTE FOR PAIN CLINIC DIAGNOSES: Lumbar radiculopathy with lumbar spinal stenosis and neurogenic claudication. HISTORY OF PRESENT ILLNESS: The patient is a 74-year-old male who returns for followup status post lumbar epidural steroid injection x1 on 04/19. The patient did very well with about 75% improvement in the pain in his low back and bilateral lower extremities. The patient reports the pain is returning slightly, but only slightly in the low back and the left leg. The patient reports it is 8 on a scale of 10 at its worst over the past week, 7 on average, 5 at its least and is a 5 today. The patient reports it is aching and radiating in the low back, worse with activity, changing positions. The patient reports he was increasing his activity after his last injection with distance walking, doing work activities, household activities. 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 He is very active and has been doing this with much greater ease and comfort. The patient reports he is sleeping well at night, does not awaken him from sleep generally. No new motor or sensory deficits, no new bowel or bladder incontinence or other complaints. PHYSICAL EXAMINATION: VITAL SIGNS: The patient's blood pressure 128/75, pulse 78, respirations 18, temperature 98.1 degrees Fahrenheit, height is 5 feet 11 inches, weight is 275 pounds. GENERAL: The patient is awake, alert, oriented, appropriate, very pleasant demeanor. HEENT: Head shows normocephalic, atraumatic. Extraocular movements are intact and symmetrical. Oral cavity: Mucous membranes are moist and pink. Dentition is intact. NECK: Shows anterior throat supple without palpable lymphadenopathy noted. Swallow reflex symmetrical. CHEST: Shows normal on inspection. Breath sounds are clear bilaterally. HEART: Shows S1, S2 clear. No murmurs auscultated. ABDOMEN: Soft, nontender, nondistended. BACK: Shows spine grossly in the midline. Normal appearing thoracic kyphosis, minor flattening of lumbar lordotic curvature. Lumbar paraspinous muscle shows symmetrical on inspection, on palpation shows some moderate tenderness diffusely bilaterally, but only diffusely without significant radiation. EXTREMITIES: The patient's lower extremities show deep tendon reflexes at 1+ in the patellar and tendo calcaneus tendons. Motor exam is strong with 5/5 dorsiflexion, extension, quadriceps and hamstring flexion symmetrical. Peripheral pulses are 1+ posterior tibia. No peripheral edema is noted bilaterally. Options were discussed with the patient. The patient's old chart was reviewed as his current medication regimen updated. Current review of systems updated today as well. We will proceed with a second in the series of lumbar epidural steroid injection today with fluoroscopic guidance. Risks were again discussed including, but not limited to bleeding, infection, possibility of epidural hematoma, subsequent neurological compromise, dural puncture, headaches, spinal cord and/or nerve damage, side effects of steroid medication and poor results regarding pain control. The patient understands and wished to proceed. The patient will return to clinic in approximately 2 weeks for followup. He was counseled on return appointment, activity level and side effects to be aware of. DIAGNOSIS: Lumbar radiculopathy with lumbar spinal stenosis with neurogenic claudication. PROCEDURE: Lumbar epidural steroid injection, translaminar approach L5-S1 level using C-arm fluoroscopic guidance under sterile prep and drape using local anesthetic. MEDICATION INJECTED: A total of 120 mg Depo-Medrol plus 10 mL of preservative-free normal saline and 2 mL of contrast. CONDITION AT DISCHARGE: Stable. The patient tolerated procedure well, had no complications. ZENON ASENCIO MD DR: SHANIQUA/douglas JOB#: [id number] / [id number]
== END ==
LOC: PNCL 09:53
PROVIDERS: ATTEND Anesthesiology
DX: M54.16 Radiculopathy, lumbar region (principal); M48.062 Spinal stenosis, lumbar region with neurogenic claudication
CPT/HCPCS: 62323; J1030; J1040; Q9965

== ENCOUNTER → 2019-08-17 | Outpatient (CLI) | payer MEDICARE, BC ==
--- NOTE | 2019-08-17 12:10 | PAIN ---
DATE OF SERVICE: 08/17/2019 PROGRESS NOTE FOR PAIN CLINIC DIAGNOSES: Lumbar radiculopathy with lumbar spinal stenosis with neurogenic claudication. HISTORY OF PRESENT ILLNESS: The patient is a 74-year-old male who returns for followup status post lumbar epidural steroid injection x 2, recently seen on 05/30/2019. The patient did very well with about 70% improvement in his back and lower extremity pain. The patient reports the pain is returning now over the past 2 weeks or so, increased in the low back, bilateral lower extremities, worse with increased activity. He has been increasing activities, ____ getting better. 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 The patient reports his pain is increasing in the low back, bilateral posterior gluteus, posterior thighs, as an 8 on a scale of 10 at its worst in the past week, 7 on average, 6 at its least and is a 6 today. The patient reports it is aching and dull, burning at times, shooting and stabbing as well, again worse with activity. Generally, it does not awaken him from sleep at night, but has over the past several weeks about every 3-4 hours. The patient reports initially he was doing much better with walking greater distances, doing work activities at ranch as well as household activities. PHYSICAL EXAMINATION: VITAL SIGNS: The patient's blood pressure 139/90, pulse 72, respirations 16, temperature 98.2 degrees Fahrenheit, and weight is 276 pounds. GENERAL: The patient is awake, alert, oriented, appropriate, very pleasant demeanor. HEENT: Shows normocephalic, atraumatic. Extraocular movements are intact and symmetrical. Oral cavity: Mucous membranes moist and pink. Dentition is intact. NECK: Shows anterior throat supple without palpable lymphadenopathy noted. Swallow reflex symmetrical. CHEST: Shows normal on inspection. Breath sounds are clear bilaterally. HEART: Shows S1, S2 clear. ABDOMEN: Soft, nontender, nondistended. BACK: Shows spine grossly in the midline. Normal appearing thoracic kyphosis and minor flattening of lumbar lordotic curvature. Lumbar paraspinous muscle shows symmetrical on inspection, on palpation shows some moderate tenderness diffusely bilaterally going diffusely without significant radiation. The patient has good rotational motion of lumbar spine, both laterally as well as extension and flexion without significant increase in pain. EXTREMITIES: Lower extremities show deep tendon reflexes 1+ in the patellar and tendo calcaneus tendons are equal. Motor exam is strong with dorsiflexion, extension, quadriceps and hamstring flexion all rated at 5/5 and symmetrical as well. Peripheral pulses are 1+. No edema is noted. Options were discussed with the patient. The patient's old chart was reviewed as his current medication regimen updated. Current review of systems updated today as well. We will proceed with a third in the series of lumbar epidural steroid injection today with fluoroscopic guidance. Risks were again discussed including, but not limited to bleeding, infection, possibility of epidural hematoma, subsequent neurological compromise, dural puncture, headaches, spinal cord and/or nerve damage, side effects of steroid medication and poor results regarding pain control. The patient understands and wished to proceed. The patient will return to clinic in approximately 2 weeks for followup. He was counseled on return appointment, activity level and side effects to be aware of. DIAGNOSES: Lumbar radiculopathy with lumbar spinal stenosis with neurogenic claudication. PROCEDURE: Lumbar epidural steroid injection, translaminar approach at L5-S1 level using C-arm fluoroscopic guidance under sterile prep and drape using local anesthetic. MEDICATION INJECTED: A total of 120 mg Depo-Medrol plus 10 mL of preservative-free normal saline and 2 mL of contrast. CONDITION AT DISCHARGE: Stable. The patient tolerated the procedure well, had no complications. ZENON ASENCIO MD DR: SHANIQUA/douglas JOB#: [id number] / [id number]
== END ==
LOC: PNCL 10:30
PROVIDERS: ATTEND Anesthesiology
DX: M54.16 Radiculopathy, lumbar region (principal); M48.062 Spinal stenosis, lumbar region with neurogenic claudication
CPT/HCPCS: 62323; J1030; J1040; Q9965

== ENCOUNTER → 2019-10-20 | Outpatient (CLI) | payer MEDICARE, BC ==
--- NOTE | 2019-10-20 12:14 | PAIN ---
DATE OF SERVICE: 10/20/2019 PROGRESS NOTE FOR PAIN CLINIC DIAGNOSES: Lumbar radiculopathy with lumbar spinal stenosis with neurogenic claudication. HISTORY OF PRESENT ILLNESS: The patient is a 74-year-old male who returns for followup status post lumbar epidural steroid injections, most recently seen on 08/17/2019. The patient did very well with about a 50% improvement after the last injection overall, the patient reports initially it was about 75%, but now is about 50%. The pain is returning in the low back and bilateral lower extremities, posterior gluteus, posterior thighs, and radiating in quality, but without new motor or sensory deficits. The patient is also taking hydrocodone, which he tolerates well up to 4 a day when he needs those, but lately has been 4-5, because the pain has been worse. He has been also had increased activity. 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 The patient reports otherwise doing fairly well, still sleeping well at night, it does not generally awaken him from sleep, but can over the past 1-2 weeks about every 6 hours. The patient reports the pain is 8 on a scale of 10 at its worst over the past week, 7 on average and 4 at its least and is a 7 today. The patient reports it is aching, dull, radiating in the lower extremities is noted. No new motor or sensory deficits, no bowel or bladder incontinence or other complaints and no side effects with medication. PHYSICAL EXAMINATION: VITAL SIGNS: The patient's blood pressure 141/84, pulse 62, respirations 18, temperature 98.3 degrees Fahrenheit, weight is 277 pounds. GENERAL: The patient is awake, alert, oriented, appropriate, very pleasant demeanor. HEENT: Shows normocephalic, atraumatic. Extraocular movements are intact and symmetrical. Oral cavity shows: Mucous membranes moist and pink. Dentition is intact. NECK: Shows anterior throat supple without palpable lymphadenopathy noted. Swallow reflex is symmetrical. NECK: Full rotational motion both laterally as well as extension and flexion without significant increase in pain. CHEST: Shows normal on inspection. Breath sounds are clear bilaterally. No rales, rhonchi or wheezes auscultated. HEART: Shows S1, S2 clear. No murmurs auscultated. ABDOMEN: Obese but soft, nontender. BACK: Shows spine grossly in the midline. Slight exaggeration of thoracic kyphosis, some minor flattening of lumbar lordotic curvature. Lumbar paraspinous muscle shows symmetrical on inspection, with palpation shows some moderate tenderness diffusely throughout the upper, middle and lower distribution of paraspinous muscles bilaterally, but only diffusely without significant radiation. The patient has good rotational motion of lumbar spine, both laterally as well as extension and flexion without significant pain reported. EXTREMITIES: Lower extremities show deep tendon reflexes at 1+ in the patellar and tendo calcaneus tendons are equal. Motor exam is strong with 5/5 dorsiflexion, extension, quadriceps and hamstring flexion and symmetrical. Peripheral pulses are 1+ posterior tibia. No peripheral edema bilaterally. Options were discussed with the patient. The patient's old chart was reviewed as her current medication regimen updated. Current review of systems updated today as well. We will proceed with a lumbar epidural steroid injection, the first in this series today with fluoroscopic guidance. Risks were discussed including but not limited to bleeding, infection, possibility of epidural hematoma, subsequent neurological compromise, dural puncture, headaches, spinal cord and/or nerve damage, side effects of steroid medication and poor results regarding pain control. The patient understands and wished to proceed. The patient will return to clinic in approximately 2 weeks for followup. He was counseled as to return appointment, activity level and side effects to be aware of. DIAGNOSIS: Lumbar radiculopathy with lumbar spinal stenosis with neurogenic claudication. PROCEDURE: Lumbar epidural steroid injection, translaminar approach L5-S1 level using C-arm fluoroscopic guidance under sterile prep and drape using local anesthetic. MEDICATION INJECTED: A total of 120 mg Depo-Medrol plus 10 mL of preservative-free normal saline and 2 mL of contrast. CONDITION AT DISCHARGE: Stable. The patient tolerated procedure well, had no complications. ZENON ASENCIO MD DR: SHANIQUA/douglas JOB#: [id number] / [id number]
== END | disposition home or self-care (01) ==
LOC: PNCL 10:15
PROVIDERS: ATTEND Anesthesiology
DX: M48.062 Spinal stenosis, lumbar region with neurogenic claudication (principal); M51.16 Intervertebral disc disorders with radiculopathy, lumbar region; Z88.8 Allergy status to other drugs, medicaments and biological substances; Z79.899 Other long term (current) drug therapy
CPT/HCPCS: 62323; J1030; J1040; Q9965

== ENCOUNTER → 2020-02-19 | Outpatient (CLI) | payer MEDICARE, BC ==
--- NOTE | 2020-02-19 12:37 | PDOC ---
Progress Note - Pain Clinic Date of Service: DOS: DATE: 02/19/20 TIME: 12:33 Diagnosis: Dx: Lumbar radiculopathy with lumbar spinal stenosis with neurogenic claudication History or Present Illness: HPI: 74-year-old male returns follow-up status post lumbar epidural steroid injection x1. Patient reports 50% improvement in the low back lateral lower extremity pain. Patient reports has been increase his activity to greater ease and comfort and pain was reduced for about 2 months. Patient is been traveling greater distances doing work activities household activities with greater ease and comfort sleeping better at night. Patient reports he has been sleeping in a chair over the past week or 2 as he has had some surgery on his left ear for some skin lesions and is difficult for him to sleep laying down because of the ear. Patient ports pain in the back and legs is a 6 on scale 10 is worse with the past week for an average 3 its least is a 4 today described as aching and dull at times with radiating pain in the lower extremities posterior gluteus posterior thighs occasionally of the calf more on the right than the left but mostly in the back and upper legs. Patient reports no new motor or sensory deficits no bowel or bladder incontinence or other complaints. Physical Exam: VS: Blood pressure is 146/86 pulse 81 respirations 18 temperature 97-90 Fahrenheit height is 5 foot 11 inches weight is 279 pounds PE: PHYSICAL EXAMINATION: GENERAL: The patient is awake, alert, oriented, appropriate, very pleasant demeanor HEENT: Shows normocephalic, patient has healing and bandage scars on both the temporal regions as well as over the left ear with some erythema in the left ear. Extraocular movements are intact and symmetrical. Oral cavity: Mucous membranes moist and pink. NECK: Shows anterior throat supple without palpable lymphadenopathy noted. Swallow reflex symmetrical. CHEST: Shows normal on inspection. Breath sounds are clear bilaterally, no rales rhonchi wheezes auscultated. HEART: Shows S1, S2 clear. No murmurs auscultated. ABDOMEN: Soft, nontender, nondistended obese. No palpable organomegaly is noted. No rebound or guarding demonstrated. BACK: Shows spine grossly in the midline. Normal-appearing cervical lordotic curvature. There is slightly increased thoracic kyphosis, some minor flattening of the lumbar lordotic curvature. Lumbar paraspinous muscles show symmetrical on inspection, on palpation shows some moderate tenderness diffusely throughout the middle and lower distribution of the paraspinous muscles without specific trigger points, without radiation of pain. The patient has good rotational motion of the lumbar spine, both laterally as well as extension and flexion without significant difficulty. No tenderness over the spinous processes, sacrum or sacroiliac regions. EXTREMITIES: Lower extremities show deep tendon reflexes 1+ in the patellar and tendo calcaneus tendons. Motor exam is 5 on a scale of 5 with right dorsiflexion, extension, quadriceps and hamstring flexion and 5/5 on the left. Peripheral pulses are 1+ posterior tibial. No peripheral edema is noted bilaterally. Lower extremities are warm and dry to touch, equal in color and appearance. SKIN: Shows warm and dry, good turgor. No edema. No sores, rashes or bruising throughout. Procedure: Procedure: Options were discussed with the patient. Patient chart was reviewed his his current medication regimen updated current review of systems updated today as well. We will proceed with a second in the series lumbar epidural steroid injection today with fluoroscopic guidance. Risks were discussed including but not limited to: Bleeding, infection, possibility of epidural hematoma and subsequent neurological compromise, dural puncture, headaches, spinal cord and/or nerve damage, side effects of steroid medication, and poor results regarding pain control. Patient understands wished to proceed. Patient will return to the clinic in approximate 2 weeks for follow-up was counseled as return appointment activity level and side effects to be aware of. Medication Injected: Med Injected: Procedure is lumbar epidural steroid injection under local anesthetic using sterile prep and drape at the L5-S1 level using C-arm fluoroscopic guidance in both AP and lateral views medications injected is 120 mg Depo-Medrol + 10 mL preservative-free normal saline and 2 mL contrast- condition at discharge is stable patient tolerated procedure well had no complications. Condition at Discharge: Condition at Discharge: Condition at discharge stable, patient tolerated procedure well and had no complications. ZENON ASENCIO MD Feb 19, 2020 12:37
== END | disposition home or self-care (01) ==
LOC: PNCL 11:24
PROVIDERS: ATTEND Anesthesiology
DX: M48.062 Spinal stenosis, lumbar region with neurogenic claudication (principal); M54.16 Radiculopathy, lumbar region; Z79.84 Long term (current) use of oral hypoglycemic drugs; Z79.899 Other long term (current) drug therapy; Z91.040 Latex allergy status; Z88.8 Allergy status to other drugs, medicaments and biological substances
CPT/HCPCS: 62323; J1030; J1040; Q9965

== ENCOUNTER → 2020-06-06 | Outpatient (CLI) | payer MEDICARE, BC ==
--- NOTE | 2020-06-06 12:17 | PDOC ---
Progress Note - Pain Clinic Date of Service: DOS: DATE: 06/06/20 TIME: 12:13 Diagnosis: Dx: Lumbar radiculopathy with lumbar spinal stenosis with neurogenic claudication History or Present Illness: HPI: 75-year-old male returns follow-up status post lumbar epidural steroid injection x2. Patient last visit was February 19, 2020 did very well after the injection with about 75% improvement for the first month pain is been returned now down to about a 50% improvement overall in the low back and bilateral lower extremities mostly the posterior gluteus posterior thighs and calves right equal to left. Patient reports his pain is scale 10 is worse over the past week 6 on average 4 to sleep and is a 6 today. Patient reports radiating pain in the lower extremities as described aching and dull in the back as well worse with changing positions standing walking wakes him from sleep about every 5-6 hours but is only been disturbing sleep for about the last 2 to 3 weeks. 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 Patient reports no new motor or sensory deficits no new bowel or bladder incontinence. Physical Exam: VS: Blood pressure is 135/70 pulse 84 respirations are 16 temperature is 97.9; Height is 5 foot 11 inches weight is 265 pounds PE: PHYSICAL EXAMINATION: GENERAL: The patient is awake, alert, oriented, appropriate, very pleasant demeanor HEENT: Shows normocephalic, atraumatic. Extraocular movements are intact and symmetrical. Oral cavity: Mucous membranes moist and pink. NECK: Shows anterior throat supple without palpable lymphadenopathy noted. Swallow reflex symmetrical. CHEST: Shows normal on inspection. Breath sounds are clear bilaterally, no rales or rhonchi bilaterally. HEART: Shows S1, S2 clear. No murmurs auscultated. ABDOMEN: Soft, nontender, nondistended, obese. No palpable organomegaly is noted. BACK: Shows spine grossly in the midline. Normal-appearing cervical lordotic curvature. There is slightly increased thoracic kyphosis, some flattening of the lumbar lordotic curvature. Lumbar paraspinous muscles show symmetrical on inspection, on palpation shows some moderate tenderness diffusely throughout the upper, middle and lower distribution of the paraspinous muscles, but without specific trigger points, without radiation of pain. The patient has good rotational motion of the lumbar spine, both laterally as well as extension and flexion without significant difficulty. No tenderness over the spinous processes, sacrum or sacroiliac regions. EXTREMITIES: Lower extremities show deep tendon reflexes 1+ in the patellar and tendo calcaneus tendons. Motor exam is 5 on a scale of 5 with right dorsiflexion, extension, quadriceps and hamstring flexion and 5/5 on the left. Peripheral pulses are 1+ posterior tibial. No peripheral edema is noted bilaterally. Lower extremities are warm and dry to touch, equal in color and appearance. SKIN: Shows warm and dry, good turgor. No edema. No sores, rashes or bruising throughout. Procedure: Procedure: Options were discussed with patient. Patient chart was reviewed his current medication regimen updated current review of systems updated today as well. We will proceed with a third in the series lumbar epidural steroid today with fluoroscopic guidance. Risks were discussed including but not limited to: Bleeding, infection, possibility of epidural hematoma and subsequent neurological compromise, dural puncture, headaches, spinal cord and/or nerve damage, side effects of steroid medication, and poor results regarding pain control. Patient understands and wished to proceed. Patient return to clinic in approximate 2 weeks for follow-up, was counseled as return appointment, activity level, and side effects to be aware of. Medication Injected: Med Injected: Procedure is lumbar epidural steroid injection under local anesthetic using sterile prep and drape at the L5-S1 level using C-arm fluoroscopic guidance in both AP and lateral views medications injected is 120 mg Depo-Medrol + 10 mL preservative-free normal saline and 2 mL contrast- condition at discharge is stable patient tolerated procedure well had no complications. Condition at Discharge: Condition at Discharge: Additional discharge stable, patient noted procedure well had no complications. ZENON ASENCIO MD Jun 06, 2020 12:17
== END | disposition home or self-care (01) ==
LOC: PNCL 11:21
PROVIDERS: ATTEND Anesthesiology
DX: M48.062 Spinal stenosis, lumbar region with neurogenic claudication (principal); M54.16 Radiculopathy, lumbar region; Z79.84 Long term (current) use of oral hypoglycemic drugs; Z79.899 Other long term (current) drug therapy; Z98.890 Other specified postprocedural states; Z91.040 Latex allergy status; Z88.8 Allergy status to other drugs, medicaments and biological substances
CPT/HCPCS: 62323; J1030; J1040; Q9965

== ENCOUNTER → 2020-07-17 | Outpatient (CLI) | payer MEDICARE, BC ==
[~2020-07-17] MED LIST changes: -ACYC200C PO; +ACYC200C84 PO
--- NOTE | 2020-07-17 12:35 | PDOC ---
Progress Note - Pain Clinic Date of Service: DOS: DATE: 07/17/20 TIME: 12:32 Diagnosis: Dx: Lumbar radiculopathy with lumbar spinal stenosis with neurogenic claudication History or Present Illness: HPI: 75-year-old male returns follow-up status post posterior injections x3. Patient last seen June 06, 2020 very well after his last injection with about 60% improvement still pain low back bilateral lower extremities posterior gluteus posterior thigh posterior calves radiating with walking standing changing positions better with sitting or laying down but reports after the injection he did very well with increase activity with distance walking doing household activities greater ease and comfort travel with greater ease as well reports now the pain is returning in the low back and bilateral lower extremities right equal to left and is beginning to awaken him from sleep again initially was not and he was sleeping quite well. Patient reports his pain is a 7 on scale 10 is worse over the past week 6 on average for its least and is a 6 today. Patient reports no new motor or sensory deficit scribes pain is aching and radiating the lower extremities. Physical Exam: VS: Pressure is 150/87 pulse 77 respirations 18 temperature is 98.4 F height is 5 feet 11 inches weight 267 pounds PE: PHYSICAL EXAMINATION: GENERAL: The patient is awake, alert, oriented, appropriate, very pleasant demeanor HEENT: Shows normocephalic, atraumatic. Extraocular movements are intact and symmetrical. Oral cavity: Mucous membranes moist and pink. Dentition is intact. NECK: Shows anterior throat supple without palpable lymphadenopathy noted. Swallow reflex symmetrical. CHEST: Shows normal on inspection. Breath sounds are clear bilaterally, distant but no rales or rhonchi. HEART: Shows S1, S2 clear. No murmurs auscultated. ABDOMEN: Soft, nontender, nondistended, obese. No palpable organomegaly is noted. No rebound or guarding demonstrated. BACK: Shows spine grossly in the midline. Normal-appearing cervical lordotic curvature. There is slightly increased thoracic kyphosis, some minor flattening of the lumbar lordotic curvature. Lumbar paraspinous muscles show symmetrical on inspection, on palpation shows some moderate tenderness diffusely throughout the upper, middle and lower distribution of the paraspinous muscles, but without specific trigger points, without radiation of pain. The patient has good rotational motion of the lumbar spine, both laterally as well as extension and flexion without significant difficulty. No tenderness over the spinous processes, sacrum or sacroiliac regions. EXTREMITIES: Lower extremities show deep tendon reflexes 1+ in the patellar and tendo calcaneus tendons. Motor exam is 5 on a scale of 5 with right dorsiflexion, extension, quadriceps and hamstring flexion and 5/5 on the left. Peripheral pulses are 1+ posterior tibial. No peripheral edema is noted bilaterally. Lower extremities are warm and dry to touch, equal in color and appearance. SKIN: Shows warm and dry, good turgor. No edema. No sores, rashes or bruising throughout. Procedure: Procedure: Options were discussed with the patient. Patient chart reviews his current medication regimen updated current review of systems updated today as well. We will proceed with a first in the series lumbar epidural steroid traction today with fluoroscopic guidance. Risks were discussed including but not limited to: Bleeding, infection, possibility of epidural hematoma and subsequent neurologi arslan compromise, dural puncture, headaches, spinal cord and/or nerve damage, side effects of steroid medication, and poor results regarding pain control. Patient understands and wished to proceed. Patient will return to clinic in approximate 2 weeks for follow-up, was counseled as return appointment activity level and side effects to be aware of. Medication Injected: Med Injected: Procedure is lumbar epidural steroid injection under local anesthetic using sterile prep and drape at the L5-S1 level using C-arm fluoroscopic guidance in both AP and lateral views medications injected is 120 mg Depo-Medrol + 10 mL preservative-free normal saline and 2 mL contrast- condition at discharge is stable patient tolerated procedure well had no complications. Condition at Discharge: Condition at Discharge: Condition at discharge stable, patient alert the procedure well and had no complications. ZENON ASENCIO MD Jul 17, 2020 12:35
--- NOTE | 2020-07-17 12:35 | PDOC4 ---
PROCEDURE Procedure Patient is consented for lumbar epidural steroid injection. Risks were disc ussed including but not limited to: Bleeding, infection, possibility of epidural hematoma and subsequent neurological compromise, dural puncture, headaches, spinal cord and/or nerve damage, side effects of steroid medication, and poor results regarding pain control. Patient understands and wished to proceed. Procedure is lumbar epidural steroid injection under local anesthetic using sterile prep and drape at the L5-S1 level using C-arm fluoroscopic guidance in both AP and lateral views medications injected is 120 mg Depo-Medrol + 10 mL preservative-free normal saline and 2 mL contrast- condition at discharge is stable patient tolerated procedure well had no complications. ZENON ASENCIO MD Jul 17, 2020 12:35
== END | disposition home or self-care (01) ==
LOC: PNCL 11:40
PROVIDERS: ATTEND Anesthesiology
DX: M48.062 Spinal stenosis, lumbar region with neurogenic claudication (principal); M54.16 Radiculopathy, lumbar region; Z79.84 Long term (current) use of oral hypoglycemic drugs; Z79.899 Other long term (current) drug therapy; Z91.040 Latex allergy status; Z88.8 Allergy status to other drugs, medicaments and biological substances
CPT/HCPCS: 62323; J1030; J1040; Q9965

== ENCOUNTER → 2020-09-04 | Outpatient (CLI) | payer MEDICARE, BC ==
--- NOTE | 2020-09-04 11:13 | PDOC4 ---
PROCEDURE Procedure Patient was consented for lumbar epidural steroid injection. Risks were dis cussed including but not limited to: Bleeding, infection, possibility of epidural hematoma and subsequent neurological compromise, dural puncture, headaches, spinal cord and/or nerve damage, side effects of steroid medication, and poor results regarding pain control. Patient understands and wished to proceed. Procedure is lumbar epidural steroid injection under local anesthetic using sterile prep and drape at the L5-S1 level using C-arm fluoroscopic guidance in both AP and lateral views medications injected is 120 mg Depo-Medrol +10mL preservative-free normal saline and 2 mL contrast- condition at discharge is stable patient tolerated procedure well had no complications. ZENON ASENCIO MD Sep 04, 2020 11:13
--- NOTE | 2020-09-04 11:13 | PDOC ---
Progress Note - Pain Clinic Date of Service: DOS: DATE: 09/04/20 TIME: 11:10 Diagnosis: Dx: Lumbar radiculopathy with lumbar spinal stenosis with neurogenic claudication History or Present Illness: HPI: 75-year-old male returns status post lumbar epidural steroid action x1 last seen 07/17/2020. Patient also taking hydrocodone 7.5 mg with good results and without side effects. Patient reports still significant pain with increased activity in the low back bilateral lower extremities posterior gluteus posterior thigh posterior calves which has been flared up over the last few weeks with some increased activity at home. 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 Patient reports about 85% improvement after the last injection for about a month and the pain began to return gradually after that time. Patient reports the pain is a 9 on scale 10 is worse over the past week 7 on average 4 to sleep is a 6 today patient reports is aching and dull in the low back radiating in the bilateral lower extremities posterior gluteus posterior thigh posterior calves worse with walking standing changing positions better with sitting or laying down but does awaken him from sleep occasionally but not most nights. Patient reports no new motor or sensory deficits no new bowel or bladder incontinence or other complaints. Physical Exam: VS: Blood pressure is 143/75 pulse 94 respirations 18 temperature 98.5 F height is 5 feet 11 inches weight is 255 pounds PE: PHYSICAL EXAMINATION: GENERAL: The patient is awake, alert, oriented, appropriate, very pleasant demeanor HEENT: Shows normocephalic, atraumatic. Extraocular movements are intact and symmetrical. Oral cavity: Mucous membranes moist and pink. Dentition is intact. NECK: Shows anterior throat supple without palpable lymphadenopathy noted. Swallow reflex symmetrical. CHEST: Shows normal on inspection. Breath sounds are clear bilaterally, distant but no rales rhonchi or wheezes auscultated. HEART: Shows S1, S2 clear. No murmurs auscultated. ABDOMEN: Soft, nontender, nondistended, obese. No palpable organomegaly is noted. No rebound or guarding demonstrated. BACK: Shows spine grossly in the midline. Normal-appearing cervical lordotic curvature. There is slightly increased thoracic kyphosis, some minor flattening of the lumbar lordotic curvature. Lumbar paraspinous muscles show symmetrical on inspection, on palpation shows some moderate tenderness diffusely throughout the upper, middle and lower distribution of the paraspinous muscles without specific trigger points, without radiation of pain. The patient has good rotational motion of the lumbar spine, both laterally as well as extension and flexion without significant difficulty. EXTREMITIES: Lower extremities show deep tendon reflexes 1+ in the patellar and tendo calcaneus tendons. Motor exam is 5 on a scale of 5 with right dorsiflexion, extension, quadriceps and hamstring flexion and 5/5 on the left. Peripheral pulses are 1 to posterior tibial. No peripheral edema is noted bilaterally. Lower extremities are warm and dry. SKIN: Shows warm and dry, good turgor. No edema. No sores, rashes or bruising throughout. Procedure: Procedure: Options were discussed with patient. Patient chart reviews his current medication regimen updated current review of systems updated today as well. We will proceed with a second in a series lumbar epidural steroid injection today with fluoroscopic guidance. Risks were discussed including but not limited to: Bleeding, infection, possibility of epidural hematoma and subsequent neurological compromise, dural puncture, headaches, spinal cord and/or nerve damage, side effects of steroid medication, and poor results regarding pain control. Patient understands and wished to proceed. Patient will return to the clinic in approximate 2 weeks for follow-up, was counseled as return appointment, activity, and side effects aware of. Medication Injected: Med Injected: Procedure is lumbar epidural steroid injection under local anesthetic using sterile prep and drape at the L5-S1 level using C-arm fluoroscopic guidance in both AP and lateral views medications injected is 120 mg Depo-Medrol +10mL preservative-free normal saline and 2 mL contrast- condition at discharge is stable patient tolerated procedure well had no complications. Condition at Discharge: Condition at Discharge: Condition at discharge is stable, patient alert procedure well had no complications. ZENON ASENCIO MD Sep 04, 2020 11:13
== END | disposition home or self-care (01) ==
LOC: PNCL 10:05
PROVIDERS: ATTEND Anesthesiology
DX: M48.062 Spinal stenosis, lumbar region with neurogenic claudication (principal); M54.16 Radiculopathy, lumbar region; Z79.84 Long term (current) use of oral hypoglycemic drugs; Z79.899 Other long term (current) drug therapy; Z91.040 Latex allergy status; Z88.8 Allergy status to other drugs, medicaments and biological substances
CPT/HCPCS: 62323; J1030; J1040; Q9965

== ENCOUNTER → 2020-11-21 | Outpatient (CLI) | payer MEDICARE, BC ==
[~2020-11-21] MED LIST changes: +HYDR-2769 PO; -methylPREDNISolone ACETATE 40 MG/ML VIAL. ONE
--- NOTE | 2020-11-21 10:56 | PDOC ---
Progress Note - Pain Clinic Date of Service: DOS: DATE: 11/21/20 TIME: 10:54 Diagnosis: Dx: Lumbar radiculopathy with lumbar spinal stenosis with neurogenic claudication History or Present Illness: HPI: 75-year-old male returns for follow-up status post lumbar epidural steroid injection x2. 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 Patient reports is been doing his normal activities decrease pain with the activity again spinning to return over the past few weeks. Patient reports no new motor or sensory deficits no bowel or bladder incontinence Physical Exam: VS: Blood pressure is 146/84 pulse 70 respirations 18 temperature is 98.2 F weight is 246 pounds PE: PHYSICAL EXAMINATION: GENERAL: The patient is awake, alert, oriented, appropriate, very pleasant in demeanor HEENT: Shows normocephalic, atraumatic. Extraocular movements are intact and symmetrical. Oral cavity: Mucous membranes moist and pink. NECK: Shows anterior throat supple without palpable lymphadenopathy noted. Swallow reflex symmetrical. CHEST: Shows normal on inspection. Breath sounds are clear bilaterally, distant no rales rhonchi or wheezes auscultated. HEART: Shows S1, S2 clear. No murmurs auscultated. ABDOMEN: Soft, nontender, nondistended, obese. No palpable organomegaly is noted. BACK: Shows spine grossly in the midline. Normal-appearing cervical lordotic curvature. There is slightly increased thoracic kyphosis, some minor flattening of the lumbar lordotic curvature. Lumbar paraspinous muscles show symmetrical on inspection, on palpation shows some moderate tenderness diffusely throughout the upper, middle and lower distribution of the paraspinous muscles, but without specific trigger points, without radiation of pain. The patient has good rotational motion of the lumbar spine, both laterally as well as extension and flexion without significant difficulty. No tenderness over the spinous processes, sacrum or sacroiliac regions. EXTREMITIES: Lower extremities show deep tendon reflexes 1+ in the patellar and tendo calcaneus tendons. Motor exam is 5 on a scale of 5 with right dorsiflexion, extension, quadriceps and hamstring flexion and 5/5 on the left. Peripheral pulses are 1+ posterior tibial. No peripheral edema is noted bilaterally. Lower extremities are warm and dry. SKIN: Shows warm and dry, good turgor. No edema. No sores, rashes or bruising throughout. Procedure: Procedure: Options were discussed with the patient. Patient chart reviewed his current medication regimen updated current review of systems updated today as well. We will proceed with a lumbar epidural steroid injection stable fluoroscopic guidance. Risks were discussed including but not limited to: Bleeding, infection, possibility of epidural hematoma and subsequent neurological compromise, dural puncture, headaches, spinal cord and/or nerve damage, side effects of steroid medication, and poor results regarding pain control. Patient understands and wished to proceed. She will return to the clinic in approximately 2 weeks for follow-up, was counseled as to return appointment active level and side effects to be aware of. Medication Injected: Med Injected: Procedure is lumbar epidural steroid injection under local anesthetic using sterile prep and drape at the L5-S1 level using C-arm fluoroscopic guidance in both AP and lateral views medications injected is 120 mg Depo-Medrol +10mL preservative-free normal saline and 2 mL contrast- condition at discharge is stable patient tolerated procedure well had no complications. Condition at Discharge: Condition at Discharge: Condition at discharge is stable, patient tolerated the procedure well and had no complications. ZENON ASENCIO MD Nov 21, 2020 10:56
--- NOTE | 2020-11-21 10:57 | PDOC4 ---
Procedure Note: ICD 10 Code: ICD 10 Code: M54.17 M4 8.062 Z 79.899 Procedure Note: Patient was consented for lumbar epidural steroid injection with fluoroscopic guidance. Risks were discussed including but not limited to: Bleeding, infection, possibility of epidural hematoma and subsequent neurological compromise, dural puncture, headaches, spinal cord and/or nerve damage, side effects of steroid medication, and poor results regarding pain control. Patient understands and wished to proceed. Procedure is lumbar epidural steroid injection under local anesthetic using sterile prep and drape at the L5 S1 level using C-arm fluoroscopic guidance in both AP and lateral views medications injected is 120 mg Depo-Medrol +10mL preservative-free normal saline and 2 mL contrast- condition at discharge is stable patient tolerated procedure well had no complications. ZENON ASENCIO MD Nov 21, 2020 10:57
== END ==
LOC: PNCL 09:56
PROVIDERS: ATTEND Anesthesiology
DX: M54.17 Radiculopathy, lumbosacral region (principal); M48.062 Spinal stenosis, lumbar region with neurogenic claudication
CPT/HCPCS: 62323; J1040; Q9965

== ENCOUNTER → 2020-12-24 | Outpatient (CLI) | payer MEDICARE, BC ==
[~2020-12-24] MED LIST changes: +BUPIVACAINE MPF 0.25% 10 ML VIAL. ONE
--- NOTE | 2020-12-24 11:01 | PDOC ---
Progress Note - Pain Clinic Date of Service: DOS: DATE: 12/24/20 TIME: 10:58 Diagnosis: Dx: Spinal stenosis with neurogenic claudication Lumbar and lumbosacral spondylosis History or Present Illness: HPI: 75-year-old male returns for follow-up status post lumbar epidural steroid injections most recently seen November 21, 2020 patient did very well with about 75% improvement but his pain is changed now he has new pain which is only across the low back is not radiating to the lower extremities as it most previously did patient reports his legs are doing much better but the pain in his back and becoming debilitating or 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 Physical Exam: VS: Blood pressure is 152/83 pulse 76 respirations 18 temperature is 98.5 F height 5 foot limits weight is 250 pounds PE: PHYSICAL EXAMINATION: GENERAL: The patient is awake, alert, oriented, appropriate, very pleasant in demeanor. HEENT: Shows normocephalic, atraumatic. Extraocular movements are intact and sy mmetrical. Oral cavity: Mucous membranes moist and pink. NECK: Shows anterior throat supple without palpable lymphadenopathy noted. Swallow reflex symmetrical. CHEST: Shows normal on inspection. Breath sounds are clear bilaterally, no rales rhonchi wheezes auscultated. HEART: Shows S1, S2 clear. No murmurs auscultated. ABDOMEN: Soft, nontender, nondistended, obese. No palpable organomegaly is noted. BACK: Shows spine grossly in the midline. Normal-appearing cervical lordotic curvature. There is slightly increased thoracic kyphosis, some minor flattening of the lumbar lordotic curvature. Lumbar paraspinous muscles show symmetrical on inspection, on palpation shows some moderate tenderness diffusely throughout the upper, middle and lower distribution of the paraspinous muscles without specific trigger points, without radiation of pain. The patient has good rotational motion of the lumbar spine, both laterally as well as extension and flexion with significant tenderness with right lateral rotation also left lateral rotation greater than 10 degrees in extension lumbar spine with axial loading especially tender at 10 degrees forward flexion 45 degrees decreases the pain. EXTREMITIES: Lower extremities show deep tendon reflexes 1+ in the patellar and tendo calcaneus tendons. Motor exam is 5 on a scale of 5 with right dorsiflexion, extension, quadriceps and hamstring flexion and 5/5 on the left. Peripheral pulses are 1+ posterior tibial. No peripheral edema is noted bilaterally. Lower extremities are warm and dry to touch, equal in color and appearance. SKIN: Shows warm and dry, good turgor. No edema. No sores, rashes or bruising throughout. Procedure: Procedure: Options were discussed with the patient. Patient chart was reviewed as his current medication regimen updated current review of systems updated today as well. We will proceed with bilateral L4-5 and L5-S1 medial branch facet blocks today with fluoroscopic guidance. Risks were discussed including but not limit ed to: Bleeding, infection, possibility of epidural hematoma and subsequent neurological compromise, dural puncture, headaches, spinal cord and/or nerve damage, side effects of steroid medication, and poor results regarding pain control. Patient understands and wished to proceed. Patient will return to clinic in approximately 3 weeks for follow-up, was counseled as return appoint ment activity level and side effects to be aware of. Medication Injected: Med Injected: Under sterile prep and drape using C-arm fluoroscopic guidance AP and lateral and oblique views, bilateral L4-5 and L5-S1 facet joint MB's injections were performed, using quinke needles with stylette's x4,, medications injected: 120 mg Depo-Medrol +4 cc 0.25% bupivacaine +2 cc contrast. Condition at discharge stable patient tolerated the procedure well and no complications. Condition at Discharge: Condition at Discharge: Condition at discharge stable, patient tolerated procedure well and had no complications. ZENON ASENCIO MD Dec 24, 2020 11:01
--- NOTE | 2020-12-24 11:02 | PDOC4 ---
Procedure Note: ICD 10 Code: ICD 10 Code: M4 7.816 M4 7.817 Procedure Note: Patient was consented for bilateral L4-5 L5-S1 facet medial branch blocks with fluoroscopic guidance. Risks were discussed including but not limited to: Bleeding, infection, possibility of epidural hematoma and subsequent neurological compromise, dural puncture, headaches, spinal cord and/or nerve damage, side effects of steroid medication, and poor results regarding pain control. Patient understands and wished to proceed. Under sterile prep and drape using C-arm fluoroscopic guidance AP and lateral and oblique views, bilateral L4-5 and L5-S1 facet joint MB's injections were performed, using quinke needles with stylette's x4,, medications injected: 120 mg Depo-Medrol +4 cc 0.25% bupivacaine +2 cc contrast. Condition at discharge stable patient tolerated the procedure well and no complications. ZENON ASENCIO MD Dec 24, 2020 11:02
== END | disposition home or self-care (01) ==
LOC: PNCL 10:12
PROVIDERS: ATTEND Anesthesiology
DX: M47.817 Spondylosis without myelopathy or radiculopathy, lumbosacral region (principal); M47.816 Spondylosis without myelopathy or radiculopathy, lumbar region; M48.061 Spinal stenosis, lumbar region without neurogenic claudication; I73.9 Peripheral vascular disease, unspecified; Z79.84 Long term (current) use of oral hypoglycemic drugs; Z79.899 Other long term (current) drug therapy; Z91.040 Latex allergy status; Z88.8 Allergy status to other drugs, medicaments and biological substances
CPT/HCPCS: 64493; 64494; J1040; J3490; Q9965

== ENCOUNTER → 2021-01-28 | Outpatient (CLI) | payer MEDICARE, BC ==
[~2021-01-28] MED LIST changes: -BUPIVACAINE MPF 0.25% 10 ML VIAL. ONE; +methylPREDNISolone ACETATE 40 MG/ML VIAL. ONE
--- NOTE | 2021-01-28 15:48 | PDOC4 ---
Procedure Note: ICD 10 Code: ICD 10 Code: M54.17 M4 8.062 Procedure Note: Patient was consented for lumbar epidural steroid injection with fluoroscopic guidance. Risks were discussed including but not limited to: Bleeding, infection, possibility of epidural hematoma and subsequent neurological compromise, dural puncture, headaches, spinal cord and/or nerve damage, side effects of steroid medication, and poor results regarding pain control. Patient understands and wished to proceed. Procedure is lumbar epidural steroid injection under local anesthetic using sterile prep and drape at the L5-S1 level using C-arm fluoroscopic guidance in both AP and lateral views medications injected is 120 mg Depo-Medrol +10mL preservative-free normal saline and 2 mL contrast- condition at discharge is stable patient tolerated procedure well had no complications. ZENON ASENCIO MD Jan 28, 2021 15:48
--- NOTE | 2021-01-28 15:48 | PDOC ---
Progress Note - Pain Clinic Date of Service: DOS: DATE: 01/28/21 TIME: 15:44 Diagnosis: Dx: Lumbar radiculopathy with lumbar spinal stenosis with neurogenic claudication and lumbar and lumbosacral spondylosis History or Present Illness: HPI: 75-year-old male returns for follow-up status post bilateral L4-5 and L5-S1 medial branch facet blocks patient reports only minimal decrease in pain for few days after the injections but the pain is returning now and is now changed and is having new pain in the low back and lower extremities which initially was just in the back patient reports into the posterior gluteus posterior thighs bilaterally slightly worse on the right than the left but present bilaterally patient reports is worse with walking standing changing positions better with sitting or laying down patient scribes aching and dull rated as an 8 on scale 10 is worse over the past week 6 on average for its least and is a 4 today. She reports no bowel or bladder incontinence but significant tenderness in the low back with changing positions has been awakening from sleep about every 4-5 hours as well. Patient reports no bowel or bladder incontinence currently. Patient also taking hydrocodone 10/325 with good results and without any significant side effects with about 70% improvement in the pain with the medication. Patient has had appropriate K tracks reporting as well as appropriate urinalyses to date. Physical Exam: VS: Blood pressure is 152/66 pulse 58 respirations 18 temperature 98.1 F height is 5 foot 11 inches weight is 249 pounds. PE: PHYSICAL EXAMINATION: GENERAL: The patient is awake, alert, oriented, appropriate, very pleasant in demeanor HEENT: Shows normocephalic, atraumatic. Extraocular movements are intact and symmetrical. Oral cavity: Mucous membranes are moist and pink. NECK: Shows anterior throat supple without palpable lymphadenopathy noted. Swallow reflex is symmetrical. CHEST: Shows normal on inspection. Breath sounds are clear bilaterally, distant but no rales or rhonchi auscultated. HEART: Shows S1, S2 clear. No murmurs auscultated. ABDOMEN: Soft, nontender, nondistended, obese. No palpable organomegaly is noted. BACK: Shows spine grossly in the midline. Normal-appearing cervical lordotic cu rvature. There is slightly increased thoracic kyphosis, some minor flattening of the lumbar lordotic curvature. Lumbar paraspinous muscles show symmetrical on inspection, on palpation shows some moderate tenderness diffusely throughout the upper, middle and lower distribution of the paraspinous muscles, but without specific trigger points, without radiation of pain. The patient has good rotational motion of the lumbar spine, both laterally as well as extension and flexion without significant difficulty. No tenderness over the spinous processes, sacrum or sacroiliac regions. EXTREMITIES: Lower extremities show deep tendon reflexes 1+ in the patellar and tendo calcaneus tendons. Motor exam is 5 on a scale of 5 with right dorsiflexion, extension, quadriceps and hamstring flexion and 5/5 on the left. Peripheral pulses are 1+ posterior tibial. No peripheral edema is noted bilaterally. Lower extremities are warm and dry. SKIN: Shows warm and dry, good turgor. No edema. No sores, rashes or bruising throughout. Procedure: Procedure: Options discussed with patient. Patient chart reviewed his current medication regimen updated current review of systems updated today as well. We will proceed with a lumbar epidural steroid injection today with fluoroscopic guidance. Risks were discussed including but not limited to: Bleeding, infection, possibility of epidural hematoma and subsequent neurological compromise, dural puncture, headaches, spinal cord and/or nerve damage, side effects of steroid medication, and poor results regarding pain control. Patient understands and wished to proceed. Patient will return to clinic in approximately 2 weeks for follow-up, was counseled as return appointment, typical, and side effects to be aware of. Medication Injected: Med Injected: Procedure is lumbar epidural steroid injection under local anesthetic using sterile prep and drape at the L5-S1 level using C-arm fluoroscopic guidance in both AP and lateral views medications injected is 120 mg Depo-Medrol +10mL preservative-free normal saline and 2 mL contrast- condition at discharge is stable patient tolerated procedure well had no complications. Condition at Discharge: Condition at Discharge: Condition at discharge stable, patient tolerated procedure well and had no complications. ZENON ASENCIO MD Jan 28, 2021 15:48
== END | disposition home or self-care (01) ==
LOC: PNCL 14:22
PROVIDERS: ATTEND Anesthesiology
DX: M54.17 Radiculopathy, lumbosacral region (principal); M48.062 Spinal stenosis, lumbar region with neurogenic claudication; Z98.890 Other specified postprocedural states
CPT/HCPCS: 62323; J1030; J1040; Q9965

== ENCOUNTER → 2021-02-21 | Outpatient (CLI) | payer MEDICARE, BC ==
--- NOTE | 2021-02-21 13:26 | PDOC ---
Progress Note - Pain Clinic Date of Service: DOS: DATE: 02/21/21 TIME: 13:22 Diagnosis: Dx: Lumbar radiculopathy with lumbar spinal stenosis with neurogenic claudication and lumbar and lumbosacral spondylosis History or Present Illness: HPI: 75-year-old male returns for follow-up status post lumbar epidural steroid injection last seen on January 28, 2021. Patient reports about 50% better but the pain is low back and bilateral lower extremities somewhat more on the right than left now across the low back as well patient reports a 7 on scale 10 is worse over the past week 5 on average for its least is a 4 today patient report is worse with walking standing changing positions. Patient reports better with sitting or laying down but has been waking her from sleep at night over the past few weeks initially doing much better distance walking doing household activities travel with greater ease and comfort riding in the car for longer periods with greater ease. Scribes pain is aching and dull radiating to the lower extremities. Patient reports no bowel or bladder incontinence no loss of motor function with significant debility especially the right lower extremity with walking and standing. Physical Exam: VS: Blood pressure is 151/82 pulse 76 respirations 18 temperature is 90.5 F height is 5 foot 10 inches weight is 2051 pounds. PE: PHYSICAL EXAMINATION: GENERAL: The patient is awake, alert, oriented, appropriate, very pleasant in demeanor HEENT: Shows normocephalic, atraumatic. Extraocular movements are intact and symmetrical. Oral cavity: Mucous membranes moist and pink. NECK: Shows anterior throat supple without palpable lymphadenopathy noted. Swallow reflex symmetrical. CHEST: Shows normal on inspection. Breath sounds are clear bilaterally, distant but no rales or rhonchi. HEART: Shows S1, S2 clear. No murmurs auscultated. ABDOMEN: Soft, nontender, nondistended, obese. No palpable organomegaly is noted. BACK: Shows spine grossly in the midline. Normal-appearing cervical lordotic curvature. There is slightly increased thoracic kyphosis, some minor flattening of the lumbar lordotic curvature. Lumbar paraspinous muscles show symmetrical on inspection, on palpation shows some moderate tenderness diffusely throughout the upper, middle and lower distribution of the paraspinous muscles without specific trigger points, without radiation of pain. The patient has good rotational motion of the lumbar spine, both laterally as well as extension and flexion without significant difficulty. EXTREMITIES: Lower extremities show deep tendon reflexes 1 to in the patellar and tendo calcaneus tendons. Motor exam is 5 on a scale of 5 with right dorsiflexion, extension, quadriceps and hamstring flexion and 5/5 on the left. Peripheral pulses are 1+ posterior tibial. No peripheral edema is noted bilaterally. Lower extremities are warm and dry to touch, equal in color and appearance. SKIN: Shows warm and dry, good turgor. No edema. No sores, rashes or bruising throughout. Procedure: Procedure: Options were discussed with the patient. Patient's old chart was used his current medication regimen updated current review of systems updated today as well. We will proceed with a lumbar epidural steroid injection stable fluoroscopic guidance. Risks were discussed including but not limited to: Bleeding, infection, possibility of epidural hematoma and subsequent neurological compromise, dural puncture, headaches, spinal cord and/or nerve damage, side effects of steroid medication, and poor results regarding pain control. Patient understands and wished to proceed. Return to clinic in [facility] 2 weeks for follow-up, was counseled return appointment, activity level, and side effects beware of. Medication Injected: Med Injected: Procedure is lumbar epidural steroid injection under local anesthetic using st erile prep and drape at the L5-S1 level using C-arm fluoroscopic guidance in both AP and lateral views medications injected is 120 mg Depo-Medrol +10mL preservative-free normal saline and 2 mL contrast- condition at discharge is stable patient tolerated procedure well had no complications. Condition at Discharge: Condition at Discharge: Condition at discharge stable, pain tolerated procedure well and had no complications. ZENON ASENCIO MD Feb 21, 2021 13:26
--- NOTE | 2021-02-21 13:26 | PDOC4 ---
Procedure Note: ICD 10 Code: ICD 10 Code: M54.17 M4 8.06 M4 7.816 M4 7.817 Procedure Note: Patient was consented for lumbar epidural steroid injection with fluoroscopic guidance. Risks were discussed including but not limited to: Bleeding, infection, possibility of epidural hematoma and subsequent neurological compr omise, dural puncture, headaches, spinal cord and/or nerve damage, side effects of steroid medication, and poor results regarding pain control. Patient understands and wished to proceed. Procedure is lumbar epidural steroid injection under local anesthetic using sterile prep and drape at the L5-S1 level using C-arm fluoroscopic guidance in both AP and lateral views medications injected is 120 mg Depo-Medrol +10mL preservative-free normal saline and 2 mL contrast- condition at discharge is stable patient tolerated procedure well had no complications. ZENON ASENCIO MD Feb 21, 2021 13:26
== END | disposition home or self-care (01) ==
LOC: PNCL 12:17
PROVIDERS: ATTEND Anesthesiology
DX: M48.062 Spinal stenosis, lumbar region with neurogenic claudication (principal); M47.27 Other spondylosis with radiculopathy, lumbosacral region; M47.26 Other spondylosis with radiculopathy, lumbar region; G89.29 Other chronic pain; M54.59 Other low back pain
CPT/HCPCS: 62323; J1030; J1040; Q9965

== ENCOUNTER → 2021-03-18 | Outpatient (CLI) | payer MEDICARE, BC ==
--- NOTE | 2021-03-18 10:56 | PDOC ---
Progress Note - Pain Clinic Date of Service: DOS: DATE: 03/18/21 TIME: 10:52 Diagnosis: Dx: Lumbar radiculopathy with lumbar degenerative disc disease and lumbar spinal stenosis with neurogenic claudication Lumbar and lumbosacral spondylosis History or Present Illness: HPI: 75-year-old male returns for follow-up status post lumbar epidural steroid injection most recently February 21, 2021 patient reports he did very well but it was short-lived after the injection with pain returning in the low back bilateral lower extremities posterior gluteus posterior thighs posterior calf patient reports about a 30% improvement overall patient reports his pain is a 9 on scale 10 is worst 8 on average 6 its least is a 6 today patient reports is worse with walking standing changing positions sitting for prolonged periods wakes him from sleep about every 4 hours patient reports initially doing better with distance walking doing household activities and work activities but only returning fairly quickly. Patient reports no bowel or bladder incontinence describes pain as aching in the back and dull sharp at times radiating the lower extremities right and left posterior gluteus posterior thigh occasionally the posterior calf and lower leg with extended walking or standing. Patient reports no bowel or bladder incontinence. Physical Exam: VS: Blood pressure is 126/69 pulse 79 respirations 18 temperature is 98.3 F height is is 5 feet 11 inches weight is 251 pounds PE: PHYSICAL EXAMINATION: GENERAL: The patient is awake, alert, oriented, appropriate, very pleasant in demeanor HEENT: Shows normocephalic, atraumatic. Extraocular movements are intact and symmetrical. Oral cavity: Mucous membranes moist and pink. NECK: Shows anterior throat supple without palpable lymphadenopathy noted. Swallow reflex symmetrical. CHEST: Shows normal on inspection. Breath sounds are clear bilaterally, distant but no rales or rhonchi. HEART: Shows S1, S2 clear. No murmurs auscultated. ABDOMEN: Soft, nontender, nondistended, obese. No palpable organomegaly is noted. BACK: Shows spine grossly in the midline. Normal-appearing cervical lordotic curvature. There is slightly increased thoracic kyphosis, some minor flattening of the lumbar lordotic curvature. Lumbar paraspinous muscles show symmetrical on inspection, on palpation shows some moderate tenderness diffusely throughout the upper, middle and lower distribution of the paraspinous muscles without specific trigger points, without radiation of pain. The patient has good rotational motion of the lumbar spine, both laterally as well as extension and flexion with moderate tenderness with extension as well as right left lateral rotation greater than 10 degrees but better with forward flexion. No tenderness over the spinous processes, sacrum or sacroiliac regions. EXTREMITIES: Lower extremities show deep tendon reflexes 1+ in the patellar and tendo calcaneus tendons. Motor exam is 5 on a scale of 5 with right dorsiflexion, extension, quadriceps and hamstring flexion and 5/5 on the left. Peripheral pulses are 1+ posterior tibial. No peripheral edema is noted bilaterally. Lower extremities are warm and dry. SKIN: Shows warm and dry, good turgor. No edema. No sores, rashes or bruising throughout. Procedure: Procedure: Options discussed with the patient. Patient's chart was reviewed his current medication regimen updated current review of systems updated today as well. We will proceed with a lumbar epidural steroid injection today with fluoroscopic guidance. Risks were discussed including but not limited to: Bleeding, infection, possibility of epidural hematoma and subsequent neurological compromise, dural puncture, headaches, spinal cord and/or nerve damage, side effects of steroid medication, and poor results regarding pain control. Patient understands and wished to proceed. Patient will return to the clinic in approximate 2 weeks for follow-up, was counseled as return appointment, activity level, and side effect to be aware of. Medication Injected: Med Injected: Procedure is lumbar epidural steroid injection under local anesthetic using sterile prep and drape at the L5-S1 level using C-arm fluoroscopic guidance in both AP and lateral views medications injected is 120 mg Depo-Medrol +10mL preservative-free normal saline and 2 mL contrast- condition at discharge is sta ble patient tolerated procedure well had no complications. Condition at Discharge: Condition at Discharge: Condition at discharge stable, paced tolerated procedure well and had no complications. ZENON ASENCIO MD Mar 18, 2021 10:56
--- NOTE | 2021-03-18 10:57 | PDOC4 ---
Procedure Note: ICD 10 Code: ICD 10 Code: M54.17 M4 8.07 M4 7.816 M4 7.817 Procedure Note: Patient was consented for lumbar epidural steroid injection with fluoroscopic guidance. Risks were discussed including but not limited to: Bleeding, infection, possibility of epidural hematoma and subsequent neurological compr omise, dural puncture, headaches, spinal cord and/or nerve damage, side effects of steroid medication, and poor results regarding pain control. Patient understands and wished to proceed. Procedure is lumbar epidural steroid injection under local anesthetic using sterile prep and drape at the L5-S1 level using C-arm fluoroscopic guidance in both AP and lateral views medications injected is 120 mg Depo-Medrol +10mL preservative-free normal saline and 2 mL contrast- condition at discharge is stable patient tolerated procedure well had no complications. ZENON ASENCIO MD Mar 18, 2021 10:56
== END | disposition home or self-care (01) ==
LOC: PNCL 10:08
PROVIDERS: ATTEND Anesthesiology
DX: M51.16 Intervertebral disc disorders with radiculopathy, lumbar region (principal); M48.062 Spinal stenosis, lumbar region with neurogenic claudication; M47.27 Other spondylosis with radiculopathy, lumbosacral region; M47.26 Other spondylosis with radiculopathy, lumbar region; Z79.84 Long term (current) use of oral hypoglycemic drugs; Z79.899 Other long term (current) drug therapy; Z91.040 Latex allergy status; Z88.8 Allergy status to other drugs, medicaments and biological substances; Z88.6 Allergy status to analgesic agent
CPT/HCPCS: 62323; J1030; J1040; Q9965

== ENCOUNTER → 2021-05-02 | Outpatient (CLI) | payer MEDICARE, BC ==
[~2021-05-02] MED LIST changes: +BUPIVACAINE MPF 0.25% 10 ML VIAL. ONE; -IOHEXOL 180 MG/ML 10 ML VIAL. ONE; -methylPREDNISolone ACETATE 40 MG/ML VIAL. ONE
--- NOTE | 2021-05-02 13:23 | PDOC ---
Progress Note - Pain Clinic Date of Service: DOS: DATE: 05/02/21 TIME: 13:14 Diagnosis: Dx: Myofascial pain Lumbar radiculopathy with lumbar spinal stenosis with neurogenic claudication Lumbar and lumbosacral spondylosis History or Present Illness: HPI: 76-year-old male returns for follow-up status post lumbar epidural steroid injection and medication management last seen March 18, 2021 patient did well with the lumbar epidural steroid injection at that time and returns reporting the pain is come back fairly quickly over the past week week and a half without any specific injury or accident that he is aware of in the low back the bilateral lower extremities posterior gluteus and posterior thighs but more so in the low back now in the mid back patient reports he is a increased pain in the mid and low back which is very tight and spastic feeling cramping and stabbing aching can be sharp or dull alternating but mostly in the mid to low back and in the posterior gluteus right side essentially equal to left. Patient reports he still has some pain going extremities but the pain in the mid to lower back and hips is much more pronounced and excruciating. Patient reports it wakes him from sleep at least 2-3 times at night better with sitting or resting but when he standing and walking the pain becomes unbearable or he must sit down after about 10 to 15 minutes of being on his feet over the past week or so. We discussed this with him over the phone yesterday and called in a Medrol Dosepak and patient is to start of this reports some mild decrease in pain this morning but only about 10%. Patient reports no bowel or bladder incontinence no motor loss of lower extremities but significant fatigability with both lower extremities with standing and walking. Patient had recent MRI scan was reviewed with him today both images and report showing multilevel degenerative disc disease with mild circumflexion disc bulge L1-L2 3 L3-4 L4-5 and L5-S1 with moderate bilateral neuroforaminal stenosis L3-4 and L45 without stenosis at L5- S1. Physical Exam: VS: Blood pressure is 140/78 pulse 75 respirations 18 temperature 98.6 F weight is 250 pounds. PE: PHYSICAL EXAMINATION: GENERAL: The patient is awake, alert, oriented, appropriate, very pleasant in demeanor HEENT: Shows normocephalic, atraumatic. Extraocular movements are intact and symmetrical. Oral cavity: Mucous membranes moist and pink. NECK: Shows anterior throat supple without palpable lymphadenopathy noted. Swallow reflex symmetrical. CHEST: Shows normal on inspection. Breath sounds are clear bilaterally, distant but no rales or rhonchi, no wheezes auscultated. HEART: Shows S1, S2 clear. No murmurs auscultated. ABDOMEN: Soft, nontender, nondistended. No palpable organomegaly is noted. No rebound or guarding demonstrated. BACK: Shows spine grossly in the midline. Normal-appearing cervical lordotic curvature. There is mildly increased thoracic kyphosis, some moderate flattening of the lumbar lordotic curvature. Lumbar paraspinous muscles show symmetrical on inspection, on palpation shows some moderate tenderness diffusely throughout the mid to lower thoracic paraspinous muscular very firm ropelike musculature consistent with trigger point areas of musculature this is true into the bilateral lumbar paraspinous muscles in the upper lower and middle distribution bilaterally with very firm ropelike musculature very tender to palpation without specific radiation, also into the superior and medial gluteus more on the right than left very tender ropelike musculature very easily palpable but very tender without radiation consistent with trigger point areas of musculature bilaterally as well. EXTREMITIES: Lower extremities show deep tendon reflexes 1+ in the patellar and tendo calcaneus tendons. Motor exam is 5 on a scale of 5 with right dorsiflexion, extension, quadriceps and hamstring flexion and 5/5 on the left. Peripheral pulses are 1+ posterior tibial. No peripheral edema is noted bilaterally. Lower extremities are warm and dry to touch, equal in color and appearance. SKIN: Shows warm and dry, good turgor. No edema. No sores, rashes or bruising throughout. Procedure: Procedure: Options were discussed with the patient. Patient's old chart was reviewed his current medication regimen updated current review of systems updated today as well. We will proceed with trigger point injections in the bilateral thoracic paraspinous posterior bilateral lumbar paraspinous musculature and bilateral gluteus musculature. Risk were discussed including but not limited to bleeding infection possibility of intravascular injection and sequelae spread local anesthetic and numbness side effects steroid medication portals regarding pain control. Patient understands wished to proceed. Patient will follow up in approximately 2 weeks. Patient was instructed to finish his Medrol Dosepak as well and again discussed side effects to be aware of, including elevated blood glucose. Patient is requesting medication refill of hydrocodone, and this will be electronically prescribed, patient given instructions and side effects aware with the hydrocodone as well. Medication Injected: Med Injected: Patient in sitting position under sterile prep and drape using 25-gauge needle trigger point areas identified in the bilateral inferior thoracic paraspinous posterior bilateral upper middle and lower distribution of the lumbar paraspinous muscles are and bilateral superior medial gluteus musculature after negative aspiration at each injection site, a total of 10 cc 0.25% ropivacaine and total of 40 mg Depo-Medrol was injected. Patient tolerated the procedure well and had no complications. Condition at Discharge: Condition at Discharge: Condition at discharge stable, patient tolerated the procedure well and had no complications. ZENON ASENCIO MD May 02, 2021 13:23
--- NOTE | 2021-05-02 13:23 | PDOC4 ---
Procedure Note: ICD 10 Code: ICD 10 Code: M60.89 Procedure Note: Patient was consented for trigger point injections the bilateral thoracic paraspinous posture, bilateral lumbar paraspinous muscular, bilateral gluteus musculature. Risk were discussed including but not limited to bleeding infection possibility of intravascular injection and sequelae spread of local anesthetic and numbness side effects of steroid medication portals regarding pa in control. Patient understands wished to proceed. Patient in sitting position under sterile prep and drape using 25-gauge needle trigger point areas identified in the bilateral inferior thoracic paraspinous posterior bilateral upper middle and lower distribution of the lumbar paraspinous muscles are and bilateral superior medial gluteus musculature after negative aspiration at each injection site, a total of 10 cc 0.25% ropivacaine and total of 40 mg Depo-Medrol was injected. Patient tolerated the procedure well and had no complications. ZENON ASENCIO MD May 02, 2021 13:23
== END | disposition home or self-care (01) ==
LOC: PNCL 11:47
PROVIDERS: ATTEND Anesthesiology
DX: M79.18 Myalgia, other site (principal); M48.062 Spinal stenosis, lumbar region with neurogenic claudication; M47.26 Other spondylosis with radiculopathy, lumbar region; M47.27 Other spondylosis with radiculopathy, lumbosacral region; Z79.899 Other long term (current) drug therapy; Z91.040 Latex allergy status; Z88.8 Allergy status to other drugs, medicaments and biological substances; Z88.6 Allergy status to analgesic agent
CPT/HCPCS: 20553; J1040; J3490

== ENCOUNTER → 2021-07-30 | Outpatient (CLI) | payer MEDICARE, BC ==
[~2021-07-30] MED LIST changes: -BUPIVACAINE MPF 0.25% 10 ML VIAL. ONE; +DEXAMETHASONE PRES.FREE 10 MG/ML VIAL. ONE; +GABA300C18 PO; +IOHEXOL 180 MG/ML 10 ML VIAL. ONE; +OXYC1TAB22 PO; -methylPREDNISolone ACETATE 80 MG/ML VIAL. ONE
--- NOTE | 2021-07-30 11:12 | PDOC ---
Progress Note - Pain Clinic Date of Service: DOS: DATE: 07/30/21 TIME: 11:08 Diagnosis: Dx: Lumbar radiculopathy with lumbar degenerative disc disease and lumbar spinal stenosis with neurogenic claudication Spondylosis lumbar and lumbosacral Myofascial pain History or Present Illness: HPI: 76-year-old male returns for follow-up status post trigger point injections most recently May 02, 2021. Patient reports that they did very well for temporary period in the low back and now the pain is returning and now radiating to the bilateral lower extremities posterior gluteus posterior thighs posterior calves worse with walking standing changing positions patient reports while the muscular component is much better after his last visit he still has significant pain now radiating to the lower extremities patient reports a 9 on scale 10 is worse over the past week 8 on average 6 at its least is a 6 today patient scribes aching and shooting in the legs radiating constant severe worse with walking standing change positions patient reports he fell about a week ago hit his face into a fence that he was helping manned on his property, which is increased pain in the low back as well. Patient reports he cannot stand for long periods greater than about 30 minutes he has to sit down to rest but if he is walking is more like 15 minutes for has to sit down to rest. Patient reports has been taking gabapentin recently which is a new medication for him which helps him sleep does not feel it is helping with the pain at this point. Patient reports his primary care physician is increasing the dose currently. Patient reports no bowel or bladder incontinence no loss of motor function but significant fatigability lower extremities bilaterally. Patient taking hydrocodone and we will refill that medication today as well as he does very well with this has been on a very stable regimen with appropriate K tracks reporting and urinalyses to date. Physical Exam: VS: Blood pressure is 137/69 pulse 74 respirations 18 temperature is 98.1 F height is 5 foot 11 inches weight is 261 pounds. PE: PHYSICAL EXAMINATION: GENERAL: The patient is awake, alert, oriented, appropriate, very pleasant in demeanor HEENT: Shows normocephalic, atraumatic. Extraocular movements are intact and symmetrical. Oral cavity: Mucous membranes moist and pink. NECK: Shows anterior throat supple without palpable lymphadenopathy noted. Swallow reflex symmetrical. CHEST: Shows normal on inspection. Breath sounds are clear bilaterally, distant but no rales or rhonchi auscultated. HEART: Shows S1, S2 clear. No murmurs auscultated. ABDOMEN: Soft, nontender, nondistended. No palpable organomegaly is noted. BACK: Shows spine grossly in the midline. Normal-appearing cervical lordotic curvature. There is mildly increased thoracic kyphosis, some flattening of the lumbar lordotic curvature. Lumbar paraspinous muscles show symmetrical on inspection, on palpation shows some moderate tenderness diffusely throughout the upper, middle and lower distribution of the paraspinous muscles, but without specific trigger points, without radiation of pain. The patient has good rotational motion of the lumbar spine, both laterally as well as extension and flexion without significant difficulty. EXTREMITIES: Lower extremities show deep tendon reflexes 1+ in the patellar and tendo calcaneus tendons. Motor exam is 5 on a scale of 5 with right dorsiflexion, extension, quadriceps and hamstring flexion and 5/5 on the left. Peripheral pulses are 1+ posterior tibial. 1+ peripheral edema is noted bilaterally. Lower extremities are warm and dry. SKIN: Shows warm and dry, good turgor. No edema. No sores, rashes or bruising throughout. Procedure: Procedure: Options were discussed with the patient. Patient's old chart was reviewed his current medication regimen updated current review of systems updated today as well. We will proceed with a lumbar epidural steroid injection today with fluoroscopic guidance. Risks were discussed including but not limited to: Bleeding, infection, possibility of epidural hematoma and subsequent neurological compromise, dural puncture, headaches, spinal cord and/or nerve damage, side effects of steroid medication, and poor results regarding pain control. Patient understands and wished to proceed. She will return to clinic in approximately 4 weeks for follow-up, was counseled as to return appointment, activity level, and side effects beware. Also will refill patient's hydrocodone 10 mg with instructions and side effects to be aware of discussed. Medication Injected: Med Injected: Procedure is lumbar epidural steroid injection under local anesthetic using sterile prep and drape at the L5-S1 level using C-arm fluoroscopic guidance in both AP and lateral views medications injected is 20 mg dexamethasone +10mL preservative-free normal saline and 2 mL contrast- condition at discharge is stable patient tolerated procedure well had no complications. Condition at Discharge: Condition at Discharge: Condition at discharge is stable, patient tolerated the procedure well had no complications. ZENON ASENCIO MD Jul 30, 2021 11:12
--- NOTE | 2021-07-30 11:13 | PDOC4 ---
Procedure Note: ICD 10 Code: ICD 10 Code: M54.17 M48.062 Procedure Note: Patient was consented for lumbar epidural steroid injection with fluoroscopic guidance. Risks were discussed including but not limited to: Bleeding, infection, possibility of epidural hematoma and subsequent neurological compromise, dural puncture, headaches, spinal cord and/or nerve damage, side effects of steroid medication, and poor results regarding pain control. Patient understands and wished to proceed. Procedure is lumbar epidural steroid injection under local anesthetic using sterile prep and drape at the L5-S1 level using C-arm fluoroscopic guidance in both AP and lateral views medications injected is 20 mg dexamethasone +10mL preservative-free normal saline and 2 mL contrast- condition at discharge is stable patient tolerated procedure well had no complications. ZENON ASENCIO MD Jul 30, 2021 11:13
== END | disposition home or self-care (01) ==
LOC: PNCL 09:48
PROVIDERS: ATTEND Anesthesiology
DX: M51.16 Intervertebral disc disorders with radiculopathy, lumbar region (principal); M48.062 Spinal stenosis, lumbar region with neurogenic claudication; M47.26 Other spondylosis with radiculopathy, lumbar region; M79.18 Myalgia, other site; Z79.84 Long term (current) use of oral hypoglycemic drugs; Z79.899 Other long term (current) drug therapy; Z88.6 Allergy status to analgesic agent; Z91.040 Latex allergy status; Z88.8 Allergy status to other drugs, medicaments and biological substances
CPT/HCPCS: 62323; J1100; Q9965

== ENCOUNTER → 2021-08-21 | Outpatient (CLI) | payer MEDICARE, BC ==
--- NOTE | 2021-08-21 11:12 | PDOC ---
Progress Note - Pain Clinic Date of Service: DOS: DATE: 08/21/21 TIME: 11:08 Diagnosis: Dx: Lumbar radiculopathy lumbar spinal stenosis with neurogenic claudication and lumbar and lumbosacral spondylosis Myofascial pain History or Present Illness: HPI: 76-year-old male returns for follow-up status post lumbar epidural steroid injection x1. Patient reports he did very well for the first week about 75% improvement then the pain began to return on and off in intensity in the low back and bilateral lower extremities posterior gluteus posterior thighs posterior calves patient reports is worse with walking standing changing positions and reports that the shot did not last as long this last time as it has previously. Patient reports no loss of motor function no bowel or bladder incontinence with significant pain the low back and bilateral lower extremities posterior gluteus posterior thighs and calves with walking standing changing positions wakes him from sleep occasionally on and off at night every 2-3 hours patient reports his pain is 8 on scale 10 is worse over the past week 7 on average 6 at its least and is a 7 today. Describes pain as aching and dull in the back shooting in the lower extremities and radiating with some fatigability but no motor loss. Patient reports no bowel or bladder incontinence. Physical Exam: VS: Blood pressure is 135/72 pulse 78 respirations 18 temperature 98.2 F height is 5 feet 11 inches weight is 264 pounds. PE: PHYSICAL EXAMINATION: GENERAL: The patient is awake, alert, oriented, appropriate, very pleasant in demeanor HEENT: Shows normocephalic, atraumatic. Extraocular movements are intact and symmetrical. Oral cavity: Mucous membranes moist and pink. Dentition is intact. NECK: Shows anterior throat supple without palpable lymphadenopathy noted. Swallow reflex symmetrical. CHEST: Shows normal on inspection. Breath sounds are clear bilaterally, no rales or rhonchi auscultated. HEART: Shows S1, S2 clear. No murmurs auscultated. ABDOMEN: Soft, nontender, nondistended. No palpable organomegaly is noted. No rebound or guarding demonstrated. BACK: Shows spine grossly in the midline. Normal-appearing cervical lordotic curvature. There is mildly increased thoracic kyphosis, some flattening of the lumbar lordotic curvature. Lumbar paraspinous muscles show symmetrical on inspection, on palpation shows some moderate tenderness diffusely throughout the upper, middle and lower distribution of the paraspinous muscles without specific trigger points, without radiation of pain. The patient has good rotational motion of the lumbar spine, both laterally as well as extension and flexion without significant difficulty. EXTREMITIES: Lower extremities show deep tendon reflexes 1+ in the patellar and tendo calcaneus tendons. Motor exam is 5 on a scale of 5 with right dorsiflexion, extension, quadriceps and hamstring flexion and 5/5 on the left. Peripheral pulses are 1+ posterior tibial. No peripheral edema is noted bilaterally. Lower extremities are warm and dry. SKIN: Shows warm and dry, good turgor. No edema. No sores, rashes or bruising throughout. Procedure: Procedure: Options discussed with patient. Patient's old chart was reviewed his current medication regimen updated current review of systems updated today as well. We will proceed with a lumbar epidural steroid injection today with fluoroscopic guidance. Risks were discussed including but not limited to: Bleeding, infection, possibility of epidural hematoma and subsequent neurological compromise, dural puncture, headaches, spinal cord and/or nerve damage, side effects of steroid medication, and poor results regarding pain control. Patient understands and wished to proceed. Also, discussed anti-inflammatory medication and will start patient on new medication of meloxicam 15 mg 1 p.o. daily. Patient was given instruction as well as side effects beware with the medication. Patient will follow-up in approximately 4weeks as scheduled. Medication Injected: Med Injected: Procedure is lumbar epidural steroid injection under local anesthetic using sterile prep and drape at the L5-S1 level using C-arm fluoroscopic guidance in both AP and lateral views medications injected is 20 mg dexamethasone +10mL preservative-free normal saline and 2 mL contrast- condition at discharge is stable patient tolerated procedure well had no complications. Condition at Discharge: Condition at Discharge: Condition at discharge stable, patient tolerated the procedure well and had no complications. ZENON ASENCIO MD August 21, 2021 11:12
--- NOTE | 2021-08-21 11:12 | PDOC4 ---
Procedure Note: ICD 10 Code: ICD 10 Code: M54.17 M48.062 Procedure Note: Patient was consented for lumbar epidural steroid injection with fluoroscopic guidance. Risks were discussed including but not limited to: Bleeding, infection, possibility of epidural hematoma and subsequent neurological compromise, dural puncture, headaches, spinal cord and/or nerve damage, side effects of steroid medication, and poor results regarding pain control. Patient understands and wished to proceed. Procedure is lumbar epidural steroid injection under local anesthetic using sterile prep and drape at the L5-S1 level using C-arm fluoroscopic guidance in both AP and lateral views medications injected is 20 mg dexamethasone +10mL preservative-free normal saline and 2 mL contrast- condition at discharge is stable patient tolerated procedure well had no complications. ZENON ASENCIO MD August 21, 2021 11:12
== END | disposition home or self-care (01) ==
LOC: PNCL 09:47
PROVIDERS: ATTEND Anesthesiology
DX: M48.062 Spinal stenosis, lumbar region with neurogenic claudication (principal); M47.27 Other spondylosis with radiculopathy, lumbosacral region; M79.18 Myalgia, other site; Z79.84 Long term (current) use of oral hypoglycemic drugs; Z79.899 Other long term (current) drug therapy; Z91.040 Latex allergy status; Z88.6 Allergy status to analgesic agent; Z88.8 Allergy status to other drugs, medicaments and biological substances
CPT/HCPCS: 62323; J1100; Q9965